=== PATIENT | female | born 1965 | race Caucasian/White ===

== ENCOUNTER 2017-09-28 12:26 | Inpatient (IN) | payer OTHER, MEDICARE ==
[~2017-09-28] VITALS: Ht 157.5 cm; Wt 93.6 kg
[~2017-09-28 12:26] MED LIST: ATORVASTATIN CA20 M1 PO; DULCOLAX5 M1 PO; LEVOTHYROXINE175 MCG PO; LITHIUM CARBON300 M4 PO; MIRALAX17 G1 PO; QUETIAPINE FUM300 M1 PO
--- NOTE | 2017-09-28 12:29 | ED PSYCHIATRIC COMPLAINT ---
History of Present Illness General Chief Complaint: Psychiatric Related Complaint Stated Complaint: BIBA ON PEER Allergies Coded Allergies: No Known Allergies (09/28/17) Reconcile Medications Atorvastatin Calcium 20 MG TABLET 1 TAB PO DAILY CHOLESTEROL (Reported) Bisacodyl (Dulcolax) 5 MG TABLET.DR 2 TAB PO AD PRN constipation Levothyroxine Sodium 175 MCG TABLET 1 TAB PO DAILY AC THYROID (Reported) [place] Carbonate 300 MG CAPSULE 1 CAP PO DAILY MENTAL HEALTH (Reported) [place] Carbonate 300 MG CAPSULE 2 CAP PO QPM MENTAL HEALTH (Reported) Polyethylene Glycol 3350 (Miralax) 17 GM POWD.PACK 1 PAC PO DAILY constipation dissolve in water Quetiapine Fumarate 300 MG TABLET 1 TAB PO QPM SLEEP (Reported) Past History Travel History Traveled to [place] past 21 day No Medical History Neurological: NONE EENT: NONE Cardiovascular: hyperlipidemia Respiratory: NONE Gastrointestinal: constipation Hepatic: NONE Renal: NONE Musculoskeletal: NONE Psychiatric: bipolar disease, depression, insomnia, schizo affective disorder Endocrine: hypothyroidism Blood Disorders: NONE Cancer(s): NONE 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
--- NOTE | 2017-09-28 12:34 | ED PSYCHIATRIC COMPLAINT ---
History of Present Illness General Chief Complaint: Psychiatric Related Complaint Stated Complaint: BIBA ON PEER Source: old records, EMS, police Exam Limitations: PT REFUSING TO ANSWER QUESTIONS Vital Signs & Intake/Output Vital Signs & Intake/Output Vital Signs Date Time Temp Pulse Resp B/P B/P Pulse O2 O2 Flow FiO2 Mean Ox Delivery Rate 09/28 1559 97.6 70 20 138/87 97 Room Air 09/28 1308 Room Air 09/28 1235 97.6 84 16 119/64 99 Room Air Allergies Coded Allergies: No Known Allergies (09/28/17) Reconcile Medications Atorvastatin Calcium 20 MG TABLET 1 TAB PO DAILY CHOLESTEROL (Reported) Bisacodyl (Dulcolax) 5 MG TABLET.DR 2 TAB PO AD PRN constipation Levothyroxine Sodium 175 MCG TABLET 1 TAB PO DAILY AC THYROID (Reported) [place] Carbonate 300 MG CAPSULE 1 CAP PO DAILY MENTAL HEALTH (Reported) [place] Carbonate 300 MG CAPSULE 2 CAP PO QPM MENTAL HEALTH (Reported) Polyethylene Glycol 3350 (Miralax) 17 GM POWD.PACK 1 PAC PO DAILY constipation dissolve in water Quetiapine Fumarate 300 MG TABLET 1 TAB PO QPM SLEEP (Reported) Triage Nurses Notes Reviewed? yes HPI: Patient was seen in the emergency department last night and was discharged at 6 this morning. Her daughter has brought her in for fever of mother having a manic episode. Patient was calm and cooperative at that time and contracts for safety and was subsequently discharged. Patient now brought in on a police paper after barricading herself in her bathroom. The daughter states that she per her hand with a cigarette. Patient states that the blister is from using a screwdriver. Patient denied any suicidal or homicidal ideation to EMS but hasn' t answered any questions in the emergency department. Unsure if the patient is compliant with her medications. Past History Travel History Traveled to [place] past 21 day No Medical History Any Pertinent Medical History? 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 No Review of Systems Review of Systems Constitutional: Reports: see HPI. Physical Exam Physical Exam General Appearance: well developed/nourished, alert, awake Head: atraumatic, normal appearance Eyes: Bilateral: PERRL, EOMI. Ears, Nose, Throat: normal pharynx, normal ENT inspection, hearing grossly normal Neck: normal inspection, supple, full range of motion Respiratory: normal breath sounds, chest non-tender, no respiratory distress, lungs clear Cardiovascular: regular rate/rhythm, normal peripheral pulses Gastrointestinal: normal bowel sounds, soft Extremities: SMALL BLISTER ONPALM Neurological/Psychiatric: no motor/sensory deficits, awake, agitated, alert Appearance/Memory/Insight: REFUSING TO ANSWER QUESTIONS Behavoir/Eye Contact/Speech: uncooperative SAD PERSONS Done? CRISIS CPONSULT OBTAINED Progress Differential Diagnosis: drug intoxication, drug overdose, drug withdrawal, electrolyte abnormality Plan of Care: Orders Procedure Date/time Status Admit to inpatient psych 09/28 1558 Active Continuous Observation Monitor 09/28 1237 Active ED CRISIS PSYCH CONSULT 09/28 1237 Active URINE DRUGS OF ABUSE 09/28 1229 Complete URINALYSIS 09/28 1229 Complete LITHIUM 09/28 1229 Complete ETHANOL 09/28 1229 Complete COMPREHENSIVE METABOLIC PANEL 09/28 1229 Complete CBC WITHOUT DIFFERENTIAL 09/28 1229 Complete Laboratory Tests 09/28/17 1411: Urine Opiates Screen < 100, Methadone Screen 42, Barbiturate Screen < 60, Ur Phencyclidine Scrn < 6.00, Amphetamines Screen < 100, U Benzodiazepines Scrn < 85, Urine Cocaine Screen < 50, Urine Cannabis Screen < 5.00, Urine Color STRAW, Urine Clarity CLEAR, Urine pH 6.0, Ur Specific [place] <= 1.005, Urine Protein NEG, Urine Ketones NEG, Urine Nitrite NEG, Urine Bilirubin NEG, Urine Urobilinogen 0.2, Ur Leukocyte Esterase NEG, Ur Microscopic EXAM NOT REQUIRED, Urine Hemoglobin NEG, Urine Glucose NEG 09/28/17 1302: Anion Gap 13, Estimated GFR > 60, BUN/Creatinine Ratio 15.0, Glucose 109 H, Calcium 10.1, Total Bilirubin 1.2, AST 27, ALT 34, Alkaline Phosphatase 57, Total Protein 6.7, Albumin 4.3, Globulin 2.4, Albumin/Globulin Ratio 1.8, CBC w Diff NO MAN DIFF REQ, RBC 4.31, MCV 89.8, MCH 29.8, MCHC 33.2, RDW 13.5, MPV 8.4 , Gran % 57.6, Lymphocytes % 33.7, Monocytes % 5.9, Eosinophils % 2.3, Basophils % 0.5, Absolute Granulocytes 4.6, Absolute Lymphocytes 2.7, Absolute Monocytes 0.5, Absolute Eosinophils 0.2, Absolute Basophils 0, [place] 1.1, Serum Alcohol < 10.0 Comments: APEC HAS BEEN SIGNED Departure Departure Disposition: STILL A PATIENT Condition: Stable Clinical Impression Primary Impression: Bipolar 1 disorder Referrals: Paulina Dillon APRN (PCP/Family) Departure Forms: Customer Survey General Discharge Information Psych Admission Note Psychiatric Admission: I have seen and evaluated BEENA ROMERO. I have also reviewed all the pertinent lab results and diagnostic results. BEENA ROMERO will be admitted to our inpatient Psychiatric unit for treatment and care.
[2017-09-28 13:29] LABS: LITHIUM 1.1 mmol/L (0.6-1.2)
[2017-09-28 13:51] LABS: ABSOLUTE BASOPHIL COUNT 0 /CUMM (0.0-0.2); ABSOLUTE EOSINOPHIL COUNT 0.2 /CUMM (0.0-0.7); ABSOLUTE GRANULOCYTE CT 4.6 /CUMM (1.4-6.5); ABSOLUTE LYMPH COUNT 2.7 /CUMM (1.2-3.4); ABSOLUTE MONOCYTE COUNT 0.5 /CUMM (0.10-0.60); BASOPHIL % 0.5 % (0.0-2.0); EOSINOPHIL % 2.3 % (0-5); GRANULOCYTE % 57.6 % (42.2-75.2); HEMATOCRIT 38.7 % (37-47); MEAN CORPUSCULAR HGB 29.8 PG (27.0-31.0); MEAN CORPUSCULAR HGB CONC 33.2 G/DL (33.0-37.0); MEAN CORPUSCULAR VOLUME 89.8 FL (81.0-99.0); MEAN PLATELET VOLUME 8.4 FL (7.4-10.4); PLATELET COUNT 292 /CUMM (130-400); RBC DISTRIBUTION WIDTH 13.5 % (11.5-14.5); RED BLOOD CELL CT 4.31 /CUMM (4.20-5.40)
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
[2017-09-28] MEDS ORDERED: LEVOTHYROXINE150 MCG PO (16:39)
[2017-09-28 17:10] VITALS: BP 134/75
[2017-09-28 20:10] VITALS: BP 133/70
--- NOTE | 2017-09-28 21:20 | History & Physical ---
General Information and HPI MD Statement: I have seen and personally examined BEENA ROMERO and documented this H&P. The patient is a 52 year old F who presented with a patient stated chief complaint of [ medical evaluation ]. Source of Information: patient Exam Limitations: clinical condition History of Present Illness: 52 Y O F with PMH HLD, hypothyroidism and bipolar disorder was brought in ER by her daughter for fear of her mother having a manic episode. Patient was seen in the emergency department a night before and was discharged at 6 this morning. Patient is on a police paper after barricading herself in her bathroom. Patient has pain in left side of throat. She states that one of her bottom tooth is hurting and pain goes to throat and then to ear. She felt better after tylenol. Otherwise complete 14 point ROS unremarkable. She had some flight of thoughts but she could confirm all the medications. Allergies/Medications Allergies: Coded Allergies: No Known Allergies (09/28/17) Home Med list Atorvastatin Calcium 20 MG TABLET 1 TAB PO DAILY CHOLESTEROL (Reported) Levothyroxine Sodium 150 MCG TABLET 1 TAB PO DAILY THYROID (Reported) [place] Carbonate 300 MG CAPSULE 2 CAP PO BID BIPOLAR DISORDER (Reported) Quetiapine Fumarate 300 MG TABLET 1 TAB PO QPM SLEEP (Reported) Compliance With Home Meds: GOOD Past History Travel History Traveled to [place] past 21 day No Medical History Neurological: NONE EENT: NONE Cardiovascular: hyperlipidemia Respiratory: NONE Gastrointestinal: constipation Hepatic: NONE Renal: NONE Musculoskeletal: NONE Psychiatric: bipolar disease, depression, insomnia, schizo affective disorder Endocrine: hypothyroidism Blood Disorders: NONE Cancer(s): NONE COST ENGINEER/Reproductive: fibroid History of MRSA: No History of VRE: No History of CDIFF: No Isolation History: Standard Surgical History Surgical History: non-contributory (scar on right knee ), N (scar on right knee) Past Family/Social History Family History Relations & Conditions if any Relation not specified for: *No pertinent family history Psychosocial History Who Do You Live With? self Services at Home: None Smoking Status: Current Everyday Smoker ETOH Use: denies use Illicit Drug Use: denies illicit drug use Functional Ability ADLs Independent: dressing, eating, toileting, bathing. Ambulation: independent IADLs Independent: shopping, housework, finances, food prep, telephone, transportation , medication admin. Employment History Employment Unemployed Review of Systems Review of Systems Constitutional: Reports: no symptoms, see HPI. Post Menopausal: Yes Exam & Diagnostic Data Last 24 Hrs of Vital Signs/I&O Vital Signs Date Time Temp Pulse Resp B/P B/P Pulse O2 O2 Flow FiO2 Mean Ox Delivery Rate 09/28 2009 97.7 82 133/70 09/28 1710 97.5 79 134/75 09/28 1559 97.6 70 20 138/87 97 Room Air 09/28 1308 Room Air 09/28 1235 97.6 84 16 119/64 99 Room Air Physical Exam General Appearance Alert, Oriented X3, Cooperative, No Acute Distress Skin No Rashes, No Breakdown, No Significant Lesion HEENT Atraumatic, PERRLA, EOMI Neck Supple, No JVD, No thryomegaly, +2 Carotid Pulse wo Bruit Lymphatic Cervical nl Cardiovascular Regular Rate, Normal S1, Normal S2, No Murmurs Lungs Clear to Auscultation, Normal Air Movement Abdomen Normal Bowel Sounds, Soft, No Tenderness, No Hepatospenomegaly Neurological Exam Findings: Normal Gait, Normal Speech, Strength at 5/5 X4 Ext, Normal Tone, Sensation Intact, Cranial Nerves 3-12 NL, Reflexes 2+ Cranial Nerves II through XII: 3 to 12 intact Extremities No Clubbing, No Cyanosis Vascular Normal Pulses, Pulses Symmetrical Last 24 Hrs of Labs/Godwin: Laboratory Tests 09/28/17 1411: Urine Opiates Screen < 100, Methadone Screen 42, Barbiturate Screen < 60, Ur Phencyclidine Scrn < 6.00, Amphetamines Screen < 100, U Benzodiazepines Scrn < 85, Urine Cocaine Screen < 50, Urine Cannabis Screen < 5.00, Urine Color STRAW, Urine Clarity CLEAR, Urine pH 6.0, Ur Specific [place] <= 1.005, Urine Protein NEG, Urine Ketones NEG, Urine Nitrite NEG, Urine Bilirubin NEG, Urine Urobilinogen 0.2, Ur Leukocyte Esterase NEG, Ur Microscopic EXAM NOT REQUIRED, Urine Hemoglobin NEG, Urine Glucose NEG 09/28/17 1302: Anion Gap 13, Estimated GFR > 60, BUN/Creatinine Ratio 15.0, Glucose 109 H, Calcium 10.1, Total Bilirubin 1.2, AST 27, ALT 34, Alkaline Phosphatase 57, Total Protein 6.7, Albumin 4.3, Globulin 2.4, Albumin/Globulin Ratio 1.8, CBC w Diff NO MAN DIFF REQ, RBC 4.31, MCV 89.8, MCH 29.8, MCHC 33.2, RDW 13.5, MPV 8.4 , Gran % 57.6, Lymphocytes % 33.7, Monocytes % 5.9, Eosinophils % 2.3, Basophils % 0.5, Absolute Granulocytes 4.6, Absolute Lymphocytes 2.7, Absolute Monocytes 0.5, Absolute Eosinophils 0.2, Absolute Basophils 0, Chapin 1.1, Serum Alcohol < 10.0 Diagnostic Data EKG Results reviewed Assessment/Plan Assessment: # Dental Pain : continue PRN acetaminophen or NSAID, no e/o swelling or inflammation # Bipolar disorder with Lizbeth : agree with Psych plan # HLD : continue statin # Hypothyroidism : continue levothyroxine As Ranked By This Provider Problem List: 1. Bipolar 1 disorder 2. Pain, dental Miscellaneous Miscellaneous Documentation Attending Case Discussed With: Chaitanya Adler MD Primary Care Physician: Paulina Dillon APRN Patient sees these Specialists NO specialist Level of Patient Care: SEVEN Rothman Attending MD Review Statement Attending Statement Attending MD Statement: I personally interviewed and noted H and P
--- NOTE | 2017-09-28 23:47 | Admission Certification ---
Admission Certification Certification Statement - As attending physician, I certify that at the time of - admission, based on clinical presentation, severity of - symptoms, need for further diagnostic testing and - therapeutic interventions, and risk of adverse outcomes - without in-hospital treatment, in my clinical assessment, - this patient requires an acute hospital stay for a minimum - of two nights or longer. I have also considered psychsocial - factors such as support system, advanced age, financial - issues, cognitive issues, and failed out-patient treatments, - past re-admission history, safety of patient, and lack of - compliance as applicable. Specific rationale supporting this admission is: Bipolar with Lizbeth
[2017-09-29 07:52] VITALS: BP 134/72
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
--- NOTE | 2017-09-29 11:39 | CPS PROVIDER INIT ASMT PSYCH ---
Psychiatric Admission Sales Force Developer's Note Reviewed: Yes Patient Seen and Examined: Yes Identifying Information: 52yoF Chief Complaint: "I just should have taken them" Reaction to Hospitalization: positive History of Present Illness Onset of Illness: years ago Circumstances Leading to Admission: medication noncompliance Problem(s) Justifying Need for Admission: worsening chayo and mood Other HPI: Pt notes that she has had a number of psychosocial stressors leading to hospitalization, issues with her car, with her ex-. Most importantly, pt admitted that she had only been taking 1/2 dose of medications over the past 3 months as planning ot move to [facility] and was "hoarding" meds so that she would have enough while traveling. Pt notes that this was not a good idea. Denies SI or HI. Past Psychiatric History Past Diagnosis(es)- if any: Bipolar disorder Past Precipitating Factors- if any: medication noncompliance - Include inpatient and outpatient treatment Treatment History: Pt seen at [facility] by therapist and HEAD WAITRESS for MM, did not tell them about cutting back on meds History of Suicide Attempts or Gestures multiple Substance Abuse History: tobacco: not smoked in 45d alcohol: drinking 1-2 glasses of wine, 2-3x/wk last two weeks illicits: denied Allergies: Coded Allergies: No Known Allergies (09/28/17) Home Med List: [place] Seroquel - Include any medical condition(s) that may - impact the patient's recovery/remission Past Medical History: see H&P Past History Medical History Neurological: NONE EENT: NONE Cardiovascular: hyperlipidemia Respiratory: NONE Gastrointestinal: constipation Hepatic: NONE Renal: NONE Musculoskeletal: NONE Psychiatric: bipolar disease, depression, insomnia, schizo affective disorder Endocrine: hypothyroidism Blood Disorders: NONE Cancer(s): NONE 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 History of MRSA: No History of VRE: No History of CDIFF: No Isolation History: Standard Surgical History Surgical History: HYSTERECTOMY Psychiatric Family/Social Hx Family History Psychiatric Illness: Maternal uncle with bipolar disorder, cousing ith bipolar disorder Substance Use: denied Suicides: maternal uncle via suicide Social History Living Situation: alone Significant Relationships (family/friends): daughters Education: 10th grade, when back to get GED 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 - #1 Recognizing dangerous situations. - #2 Coping Skills. - #3 Basic information about quitting. Status of Tobacco Cessation Counseling: #1, #2 AND #3 Completed Cessation Med Status Pt Refused Cessation Meds (feels not needed) Alcohol Screening - ETOH screen POS if BAL >=80 or Audit-C>= M4/F3 Audit-C Score from Diag Assess: 0 Blood Alcohol Level: Laboratory Tests 09/28 1302 Toxicology Serum Alcohol (<10 MG/DL) < 10.0 Alcohol Use Screening Results: Neg per Audit C &/or BAL - If ETOH counseling indicated - the following topics are required. - #1 Express concern about the patient's - drinking at unhealthy levels, include informing - of national norms for moderate drinking: - men <= 14 drinks/week, max 4 drinks/occasion - women <= 7 drinks/week, max 3 drinks/occasion - #2 Providing feedback, including linking alcohol to - negative physical effects (liver injury, hypertension) - negative emotional effects (relationship problems and - depression) - negative occupational consequences (reduced work - performance) - #3 Advising the patient to abstain from alcohol or - to drink below national norms for moderate drinking - (as listed above). Status of ETOH Use Counseling: N/A B/C NO ETOH Use Metabolic Screening - Screen if on a Neuroleptic Medication - Metabolic screening should include: - Blood Pressure, BMI, Glucose or Hgb A1c, & a - Lipid profile from within the past 365 days. Metabolic Screening Laboratory Tests 09/29 09/28 0655 1411 Chemistry Hemoglobin A1c (4.2 - 5.8 %) Pending Triglycerides (<150 mg/dL) 262 H Cholesterol (<200 MG/DL) 137 LDL Cholesterol, Calc (65 - 129 mg/dL) 45 L HDL Cholesterol (40 - 60 mg/dL) 40 Cholesterol/HDL Ratio (0.00 - 4.23 %) 3 Vitamin B12 (239 - 931 pg/mL) 338 Free T4 (0.64 - 1.79 ng/dL) 1.19 Total T3 (0.97 - 1.69 ng/mL) Pending TSH &T3 &Free T4 Intrp (0.270 - 4.20 uIU/mL) 7.050 H Toxicology Urine Opiates Screen (>2000 NG/ML) < 100 Methadone Screen (>300 NG/ML) 42 Barbiturate Screen (>200 NG/ML) < 60 Ur Phencyclidine Scrn (>25 NG/ML) < 6.00 Amphetamines Screen (>1000 NG/ML) < 100 U Benzodiazepines Scrn (>200 NG/ML) < 85 [place] (0.6 - 1.2 mmol/L) 1.0 Urine Cocaine Screen (>300 NG/ML) < 50 Urine Cannabis Screen (>50 NG/ML) < 5.00 Urines Urine Color (YEL,AMB,STR) STRAW Urine Clarity (CLEAR) CLEAR Urine pH (5.0 - 8.0) 6.0 Ur Specific [place] (1.001 - 1.035) <= 1.005 Urine Protein (NEG,<30 MG/DL) NEG Urine Ketones (NEG) NEG Urine Nitrite (NEG) NEG Urine Bilirubin (NEG) NEG Urine Urobilinogen (0.1 - 1.0 EU/dl) 0.2 Ur Leukocyte Esterase (NEG) NEG Ur Microscopic EXAM NOT REQUIRED Urine Hemoglobin (NEG) NEG Urine Glucose (N MG/DL) NEG 09/28 1302 Chemistry Sodium (137 - 145 mmol/L) 145 Potassium (3.5 - 5.1 mmol/L) 3.8 Chloride (98 - 107 mmol/L) 107 Carbon Dioxide (22 - 30 mmol/L) 26 Anion Gap (5 - 16) 13 BUN (7 - 17 mg/dL) 12 Creatinine (0.5 - 1.0 mg/dL) 0.8 Estimated GFR (>60 ml/min) > 60 BUN/Creatinine Ratio (7 - 25 %) 15.0 Glucose (65 - 99 mg/dL) 109 H Calcium (8.4 - 10.2 mg/dL) 10.1 Total Bilirubin (0.2 - 1.3 mg/dL) 1.2 AST (14 - 36 U/L) 27 ALT (9 - 52 U/L) 34 Alkaline Phosphatase (<127 U/L) 57 Total Protein (6.3 - 8.2 g/dL) 6.7 Albumin (3.5 - 5.0 g/dL) 4.3 Globulin (1.9 - 4.2 gm/dL) 2.4 Albumin/Globulin Ratio (1.1 - 2.2 %) 1.8 Hematology CBC w Diff NO MAN DIFF REQ WBC (4.8 - 10.8 /CUMM) 8.0 RBC (4.20 - 5.40 /CUMM) 4.31 Hgb (12.0 - 16.0 G/DL) 12.9 Hct (37 - 47 %) 38.7 MCV (81.0 - 99.0 FL) 89.8 MCH (27.0 - 31.0 PG) 29.8 MCHC (33.0 - 37.0 G/DL) 33.2 RDW (11.5 - 14.5 %) 13.5 Plt Count (130 - 400 /CUMM) 292 MPV (7.4 - 10.4 FL) 8.4 Gran % (42.2 - 75.2 %) 57.6 Lymphocytes % (20.5 - 51.1 %) 33.7 Monocytes % (1.7 - 9.3 %) 5.9 Eosinophils % (0 - 5 %) 2.3 Basophils % (0.0 - 2.0 %) 0.5 Absolute Granulocytes (1.4 - 6.5 /CUMM) 4.6 Absolute Lymphocytes (1.2 - 3.4 /CUMM) 2.7 Absolute Monocytes (0.10 - 0.60 /CUMM) 0.5 Absolute Eosinophils (0.0 - 0.7 /CUMM) 0.2 Absolute Basophils (0.0 - 0.2 /CUMM) 0 Toxicology [place] (0.6 - 1.2 mmol/L) 1.1 Serum Alcohol (<10 MG/DL) < 10.0 Exam and Plan Mental Status Examination Ambulation Status: walking freely Appearance: older than stated age Attitude towards examiner: cooperative Psychomotor activity: no agitation or retardation Behavior: cooperative Quality of speech: nl r/r/v/p though pressured Affect: irritable, labile, appropriate, grandiose Mood: "fine" Suicidal Ideation: denied Homicidal Ideation: denied Hallucinations: denied Paranoid/Delusional Material: denied Difficulties with thought organization: racing thoughts Insight: poor Judgment: very poor Orientation: a/o x4 Cognition: grossly intact Memory Function: grossly intact Estimate of intellectual functioning: average Assets/Strengths Patient Identified Assets/Strengths: able to communicate Impression/Plan Impression and Plan: Pt with hx of bipolar disorder with recent decompensation in the setting of medication non-compliance (taking 1/2 doses) - Include all active medical diagnosis that require tx DSM 5 Diagnosis(es): Bipolar disorder - Initial Tx Plan for Active Psych & Medical Conditions Treatment Plan: - Resume meds at rx dosing - Factors that would help patient function - in a less restrictive setting. Factors: medication compliance
[2017-09-29 12:01] VITALS: BP 141/75
[2017-09-29 15:44] VITALS: BP 134/80
[2017-09-29 19:50] VITALS: BP 133/79
[2017-09-30 07:41] VITALS: BP 133/74
[2017-09-30 12:15] VITALS: BP 124/70
--- NOTE | 2017-09-30 13:27 | SOCIAL WORKER PROG NOTE PSYCH ---
Social Work Progress Note Progress Note Met Ralph with Oziel Betts APRN this afternoon. Jazzmine has been going through a number of stressors, which she reports led to "a breakdown." She also mentioned missing some medication stating she sometimes would forget to take night time meds and sometimes day time meds. She keeps her medication in a divided pill box. Some of the stressors include her not being able to work right now, due to having car problems. 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 She is struggling to maintain her apartment due to being out of work. She is , but her lives in [place] with a roommate due to his employment being in [place]. She can't move in with him, because it's a room he is renting with a roommate. She is hoping that they will eventually find a place together. She hasn't been getting much sleep. She said she is experiencing some tooth pain which is causing her discomfort and that's why she couldn't sleep last night. Denies racing thoughts. Denies SI/HI. Rates her depression on a scale from 0- 10 (10 being severe) at a 3 and anxiety a 5. She states "I'm happy." She doesn 't feel she is manic. She did not present with manic behavior during the interview today. She talked about her dx of having Bipolar Disorder and wanting to help others understand the illness. She mentioned that sometimes she experiences auditory hallucinations of family members saying things to her, but they are generally postive in nature. Denies feeling paranoid. Asked if she has felt any changes from admission til now? She said she felt clearer. She attributes that to her medication. Oziel Betts APRN plans to increase her Seroquel tonight to help her sleep. Asked about having her in for a family meeting? She said her works 6 days a week and she didn't think that was possible. Asked if there was anyone else she would want in? She said maybe her daughters and she would check to see what their schedule was like. She is currently in tx at [facility] in [place]. She signed a release for them. She sees her therapist there every 2 weeks. Overall, seemed to be pleasant, cooperative, and close to baseline.
--- NOTE | 2017-09-30 13:31 | CP SOUTH PROGRESS NOTE PSYCH ---
Psych (Inpt) Progress Note Progress Note Include the following elements, when applicable: Involvement in the active treatment of the patient with behavioral observations of the patient and the patient's response to the treatment. Review of the ongoing treatment process in the context of the treatment plan. Indication of how multi-disciplinary staff members are carrying out the treatment plan. Plans for future interventions and recommendations for revision of the treatment plan. Liaison with other physicians/providers. Progress Note: I discussed this patient's progress to date, current mental status, treatment process in the context of the treatment plan, and discharge planning with staff/ team in the daily morning inpatient team meeting. I also met with the patient myself in individual session. A total of 25 minutes was spent with the patient with more than 50% spent in counseling and/or coordination of care. SUBJECTIVE: "I feel clearer, clear thoughts. I feel better now that I'm here, and taking my medications. I don't think I was manic, I was just under a lot of stress." OBJECTIVE: Current Medications Sig/Krupa Start time Last Medication Dose Route Stop Time Status Admin Acetaminophen 650 MG Q8P PRN 09/28 1715 AC 09/29 PO 0422 Atorvastatin Calcium 20 MG 5PM 09/29 1700 AC 09/29 PO 1642 Chlorpromazine 50 MG Q6P PRN 09/28 1730 AC 09/28 PO 2224 Hydroxyzine HCl 50 MG Q8P PRN 09/28 1715 AC 09/28 PO 2224 Levothyroxine Sodium 0.15 MG DAILY AC 09/29 0700 AC 09/30 PO 0623 [place] Carbonate 600 MG BID 09/28 2100 AC 09/30 PO 0751 Lorazepam 1 MG Q6P PRN 09/28 1730 AC 09/28 PO 2224 Quetiapine Fumarate 400 MG AT BEDTIME 09/30 2100 AC PO Quetiapine Fumarate 300 MG AT BEDTIME 09/28 2100 DC 09/29 PO 2129 Trazodone HCl 50 MG AT BEDTIME NEED.. 09/28 171 AC 09/28 PO 2150 Vital Signs Date Time Temp Pulse Resp B/P B/P Pulse O2 O2 Flow FiO2 Mean Ox Delivery Rate 09/30 1215 77 124/70 09/30 0741 96.5 73 133/74 09/29 1950 98.2 77 133/79 09/29 1544 79 134/80 Patient is seen for medications by MANAGER WATER WASTEWATER Mary, at [facility]. ASSESSMENT: This is my first time visiting with this patient. Today I met her along with social media developer Darby Hicks LCSW. 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 States that she does not believe that she had been manic, just that she has been under a lot of stress. Tolerating her medications well, without complaint. States that she sometimes takes a higher dose of Seroquel, and feels that she would benefit from that now. Depression:07/20; Anxiety:09/19 (with 10 the worst.) "I'm not depressed, I'm happy." Denies suicidal ideation, homicidal ideation, visual hallucinations, paranoid ideation. She states that she "never" has suicidal thoughts. States that she promised that she would never do that after a suicidal attempt 20 years ago. "Why would I kill myself, I have two wonderful daughters." Patient states and also believes that she will not kill herself. She reports intermittent auditory hallucinations "I hear my family giving me friendly advice." States that the voices never tell her bad things. She reports sleeping not that well last night, requesting a higher dose of Seroquel. Her appetite, energy, and concentration are all good. Speech is well articulated, goal-directed, average in rate, volume and tone. The patient understands the risks/benefits/side effects of the medication and is agreeable to continue taking them. PLAN: 1. Seroquel 400 mg at bedtime for continuing auditory hallucinations, difficulty sleeping. Continue with other current management as patient is improving. Continue to provide support and encouragement.
[2017-09-30 15:43] VITALS: BP 127/74
[2017-09-30 19:45] VITALS: BP 131/80
[2017-10-01 07:50] VITALS: BP 136/75
--- NOTE | 2017-10-01 09:05 | CP SOUTH PROGRESS NOTE PSYCH ---
Psych (Inpt) Progress Note Progress Note Include the following elements, when applicable: Involvement in the active treatment of the patient with behavioral observations of the patient and the patient's response to the treatment. Review of the ongoing treatment process in the context of the treatment plan. Indication of how multi-disciplinary staff members are carrying out the treatment plan. Plans for future interventions and recommendations for revision of the treatment plan. Liaison with other physicians/providers. Progress Note: I discussed this patient's progress to date, current mental status, treatment process in the context of the treatment plan, and discharge planning with staff/ team in the daily morning inpatient team meeting. I also met with the patient myself in individual session. A total of 15 minutes was spent with the patient with more than 50% spent in counseling and/or coordination of care. SUBJECTIVE: "I don't know who be much longer. I need to give this a break for a while. My came to visit last night, it was not a good visit." OBJECTIVE: Current Medications Sig/Krupa Start time Last Medication Dose Route Stop Time Status Admin Acetaminophen 650 MG Q8P PRN 09/28 1715 AC 10/01 PO 0708 Atorvastatin Calcium 20 MG 5PM 09/29 1700 AC 09/30 PO 1634 Chlorpromazine 50 MG Q6P PRN 09/28 1730 AC 10/01 PO 0001 Hydroxyzine HCl 50 MG Q8P PRN 09/28 1715 AC 09/28 PO 2224 Levothyroxine Sodium 0.15 MG DAILY AC 09/29 0700 AC 10/01 PO 0708 [place] Carbonate 600 MG BID 09/28 2100 AC 09/30 PO 2136 Lorazepam 1 MG Q6P PRN 09/28 1730 AC 09/30 PO 2238 Quetiapine Fumarate 400 MG AT BEDTIME 09/30 2100 AC 09/30 PO 2135 Quetiapine Fumarate 300 MG AT BEDTIME 09/28 2100 DC 09/29 PO 2129 Trazodone HCl 50 MG AT BEDTIME NEED.. 09/28 1715 AC 09/28 PO 2150 Vital Signs Date Time Temp Pulse Resp B/P B/P Pulse O2 O2 Flow FiO2 Mean Ox Delivery Rate 10/01 0750 96.9 86 136/75 09/30 1945 96.9 70 131/80 09/30 1543 75 127/74 09/30 1215 77 124/70 ASSESSMENT: She presents this morning, cooperative and calm. Reports feeling better after Seroquel was increased to 400 mg last night. Was somewhat agitated last night after her visit with her , and apparently she had some difficulty with another patient last night, and was medicated with prn ativan, after which she slept well last night. Patient is requesting to be discharged today. States that she is feeling stable now that she is back on her medications. She says that she has one daughter who is a pharmacist tech, and another daughter who is a nurse. Says that her daughters will help her with medication adherence, "they will be on me like white on rice." Depression:0/10; Anxiety:0/10 (with 10 the worst.) Patient reports chronic auditory hallucinations, "the voices are my family telling me that I'm okay. I haven't had bad or threatening voices in a long time." Denies suicidal ideation, homicidal ideation, visual hallucinations, paranoid ideation. Patient states that she has not had suicidal thoughts in the past 20 years. Patient states and also believes that she will not kill herself. Appetite, energy, interest are all good. Patient reports having good concentration "I'm constantly reading and writing. I have no problems with concentration at all." Speech is well articulated, goal-directed, average in rate, volume and tone. The patient understands the risks/benefits/side effects of the medication and is agreeable to continue taking them. PLAN: Continue with current management as patient is improving. Continue to provide support and encouragement.
--- NOTE | 2017-10-01 11:01 | SOCIAL WORKER PROG NOTE PSYCH ---
Social Work Progress Note Progress Note Pt was irritable, upon meeting, "I have a house, I'm sick of being here the coffee is cold, and they can't cook". She offers I will follow up with [facility] in [place]. I set up a family meeting with her daughters for 10:30 on Saturday10/02/17 Greg can be reached at [phone]. [facility] in [place]: Pt has a follow up appointment with her PCP for 10/04/17 at 11:00. She can meet with CÉSAR Temple LPC on 10/14/17 at 12:30pm, and her NURSING OFFICERBeena Courtney 10/09/17 at 3pm. Discharge info can be faxed to [phone].
[2017-10-01 11:49] VITALS: BP 119/70
--- NOTE | 2017-10-01 14:40 | SOCIAL WORKER PROG NOTE PSYCH ---
Social Work Progress Note Progress Note BEENA ROMERO [id number] 1965 BEENA NICK [id number] Pended Authorization # Client Authorization # Type of Request [id number] CONCURRENT Date of Admission/ Start of Services Requested From Submission Date 09/28/2017 10/01/2017 10/01/2017
[2017-10-01 15:59] VITALS: BP 125/72
[2017-10-01 19:53] VITALS: BP 121/77
[2017-10-02 08:02] VITALS: BP 139/85
--- NOTE | 2017-10-02 11:24 | SOCIAL WORKER PROG NOTE PSYCH ---
Social Work Progress Note Progress Note Ralph's daughter's Greg and Mony came in for a family meeting at 10:30am. Ralph was very focused on when we would be discharging and got very irritable at the start of the meeting. She seemed to be targeting her daughters in regards to "keeping her here." I emphasized that our decision to not d/c today was a team's decision and that the team feels she needs more time. She stated she was here voluntarily and wanted to leave voluntarily. I explained that she is on a PEC and explained what that was. At that point she got up and left the meeting. A few minutes later she asked to come back to the meeting. I emphasized that she needed to remain calm. One minute into the meeting she got up and left when she heard she was not leaving today. Her daughter's wanted to have some time to talk about how she is doing. They don't feel she is ready. Her daughter Mony would like to file for [employer] of person and estate. They report that they have been going through this with their Mom since childhood and they need to have more control over her finances and things when she becomes ill. It sounds like she is going to follow through with the [place] [facility]. Also gave them info on [employer] to help with rides. They asked about VNS. I told them I would have to check to see if she is eligible through her [employer] insurance. They are interested in having another family meeting. Mony is hoping she will stay through the weekend, due to her not being around this weekend. She also asked for info on her follow up appts. She is planning to go with her to appts. I gave her the appts. scheduled at [facility].
[2017-10-02 16:06] VITALS: BP 137/90
--- NOTE | 2017-10-02 18:29 | CP SOUTH PROGRESS NOTE PSYCH ---
Psych (Inpt) Progress Note Progress Note Include the following elements, when applicable: Involvement in the active treatment of the patient with behavioral observations of the patient and the patient's response to the treatment. Review of the ongoing treatment process in the context of the treatment plan. Indication of how multi-disciplinary staff members are carrying out the treatment plan. Plans for future interventions and recommendations for revision of the treatment plan. Liaison with other physicians/providers. Progress Note: I discussed this patient's progress to date, current mental status, treatment process in the context of the treatment plan, and discharge planning with staff/ team in the daily morning inpatient team meeting. I also met with the patient myself in individual session. A total of 15 minutes was spent with the patient with more than 50% spent in counseling and/or coordination of care. OBJECTIVE: Current Medications Sig/Krupa Start time Last Medication Dose Route Stop Time Status Admin Acetaminophen 650 MG Q8P PRN 09/28 1715 AC 10/01 PO 0708 Atorvastatin Calcium 20 MG 5PM 09/29 1700 AC 10/02 PO 1649 Chlorpromazine 50 MG Q6P PRN 09/28 1730 DC 10/02 PO 1100 Hydroxyzine HCl 50 MG Q8P PRN 09/28 1715 AC 09/28 PO 2224 Levothyroxine Sodium 0.15 MG DAILY AC 09/29 0700 AC 10/02 PO 0606 [place] Carbonate 600 MG BID 09/28 2100 AC 10/02 PO 0854 Lorazepam 1 MG Q6P PRN 09/28 1730 AC 10/02 PO 1100 Quetiapine Fumarate 600 MG AT BEDTIME 10/02 2100 AC PO Quetiapine Fumarate 50 MG Q4 HRS NEEDED PRN 10/02 1530 AC PO Quetiapine Fumarate 400 MG AT BEDTIME 09/30 2100 DC 10/01 PO 2118 Trazodone HCl 50 MG AT BEDTIME NEED.. 09/28 1715 AC 09/28 PO 2150 Vital Signs Date Time Temp Pulse Resp B/P B/P Pulse O2 O2 Flow FiO2 Mean Ox Delivery Rate 10/02 1606 91 137/90 10/02 0802 98.0 87 139/85 10/01 1952 98.1 84 121/77 ASSESSMENT: Today the patient refused to meet with me for a daily follow-up visit. States that she is very angry, she does not need to be here, and needs to go home. States that she planned on going shopping today. As per nursing staff, patient has been mostly isolative in her room today, acting erratically, and irritable. As per social work, patient was irritable and lashing out at her daughter's during a family meeting today. Please see today's note by Darby Salazar LCSW. Patient agreed to increase her dose of Seroquel at bedtime. She had stated that in the past she had taken 600 mg of Seroquel at bedtime to good effect. She is also aware that she may ask for additional Seroquel as needed during the day. Patient declined to comment and on her perception of her depression, anxiety, suicidal ideation, homicidal ideation, auditory hallucinations, visual hallucinations, paranoid ideation. Towards the end of the day, patient was noted to be out in the community room, acting sociably and appropriately with other patients. Speech is well articulated, goal-directed, average in rate, volume and tone. The patient understands the risks/benefits/side effects of the medication and is agreeable to continue taking them. PLAN: 1. Increase Seroquel to 600 mg at bedtime. Additional Seroquel as needed during the day. 2. Lorazepam as needed for anxiety. 3. Thorazine prn has been discontinued Continue with other current management as patient is improving. Continue to provide support and encouragement.
[2017-10-02 20:07] VITALS: BP 142/83
[2017-10-03 08:14] VITALS: BP 139/75
--- NOTE | 2017-10-03 10:44 | SOCIAL WORKER PROG NOTE PSYCH ---
Social Work Progress Note Progress Note At 10:30am Ralph was in her room resting. Her mattress was taken off her bed and is placed on the floor. She was on the mattress. She got upset immediately as I tried to engage her. She basically said it was cruel that I and other staff here keep disrupting her when she is trying to sleep. I told her that wasn't my intention, but I was trying to check in with her today. She said unless I was telling her she was leaving today there was nothing else to talk about. I asked why her mattress was on the floor? 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 She went to verbalize her frustration about being here. I told her she had the right to file for a Probable Cause Hearing. I explained what that was. She said I was only telling her this to serve my own purpose. I explained it was her legal right. She then basically dismissed me by telling me I'm wasting her time. At that point I left the room.
--- NOTE | 2017-10-03 10:49 | CP SOUTH PROGRESS NOTE PSYCH ---
Psych (Inpt) Progress Note Progress Note Include the following elements, when applicable: Involvement in the active treatment of the patient with behavioral observations of the patient and the patient's response to the treatment. Review of the ongoing treatment process in the context of the treatment plan. Indication of how multi-disciplinary staff members are carrying out the treatment plan. Plans for future interventions and recommendations for revision of the treatment plan. Liaison with other physicians/providers. Progress Note: I discussed this patient's progress to date, current mental status, treatment process in the context of the treatment plan, and discharge planning with staff/ team in the daily morning inpatient team meeting. I also met with the patient myself in individual session. A total of 15 minutes was spent with the patient with more than 50% spent in counseling and/or coordination of care. SUBJECTIVE: "I came here because I had a nervous breakdown, not because I was manic. I want to leave now! I was betrayed by my daughters." OBJECTIVE: Current Medications Sig/Krupa Start time Last Medication Dose Route Stop Time Status Admin Acetaminophen 650 MG .STK-MED ONE 10/03 2107 DC PO 10/02 210 Acetaminophen 650 MG Q8P PRN 09/28 1715 AC 10/02 PO 210 Atorvastatin Calcium 20 MG 5PM 09/29 1700 AC 10/02 PO 1649 Benzocaine 1 ENRIQUE Q6-PRN PRN 10/03 1045 UNVr TOP Chlorpromazine 50 MG Q6P PRN 09/28 1730 DC 10/02 PO 1100 Hydroxyzine HCl 50 MG Q8P PRN 09/28 1715 DC 09/28 PO 2224 Levothyroxine Sodium 0.15 MG DAILY AC 09/29 0700 AC 10/03 PO 0655 [place] Carbonate 600 MG BID 09/28 2100 AC 10/03 PO 0752 Lorazepam 2 MG AT BEDTIME 10/03 2100 UNVr PO Lorazepam 1 MG 0800,1400 10/03 1400 UNVr PO Lorazepam 1 MG Q6P PRN 09/28 1730 DC 10/03 PO 0754 Quetiapine Fumarate 600 MG AT BEDTIME 10/02 2100 AC 10/02 PO 2109 Quetiapine Fumarate 50 MG Q4 HRS NEEDED PRN 10/02 1530 AC 10/03 PO 0755 Quetiapine Fumarate 400 MG AT BEDTIME 09/30 2100 DC 10/01 PO 2118 Trazodone HCl 50 MG AT BEDTIME NEED.. 09/28 1715 DC 09/28 PO 2150 Vital Signs Date Time Temp Pulse Resp B/P B/P Pulse O2 O2 Flow FiO2 Mean Ox Delivery Rate 10/03 0814 98.9 85 139/75 10/02 2006 97.9 86 142/83 10/02 1606 91 137/90 ASSESSMENT: Patient presented today after eating a full breakfast, angry and insistent that she be discharged today from the hospital. She has numerous complaints including poor food service agent, uncomfortable bed, air conditioning in room uncomfortable, she needs to go home to check her email to see if she has any job offers. Later in the morning, pacing on the unit, angry, ranting. Tolerating bedtime Seroquel, although states she did not sleep well last night. Discussed case with Dr. Stanley and will increase lorazepam to 1mg BID, plus 2mg QHS temporarily to see if this helps her keep calm. Depression: 0/10; Anxiety:3/10 (with 10 the worst.) Denies suicidal ideation, homicidal ideation, visual hallucinations, paranoid ideation. Patient endorses hearing voices "of my family, they're all alive, they're not ghosts!" States the voices of her family members are supportive and positive. She reports her appetite is good. Her concentration is improving, states that last night she was able to do crossword puzzles and read her book. Speech is well articulated, goal-directed, average in rate, volume and tone. The patient understands the risks/benefits/side effects of the medication and is agreeable to continue taking them. PLAN: Seroquel at bedtime. Lorazepam at this time for anxiety, disruptive behavior, and sleep. Continue with other current management.. Continue to provide support and encouragement.
[2017-10-03 20:20] VITALS: BP 143/76
[2017-10-04 07:44] VITALS: BP 110/77
--- NOTE | 2017-10-04 10:25 | SOCIAL WORKER PROG NOTE PSYCH ---
Social Work Progress Note Progress Note Darby Salazar and Linus Moseley went to [facility]'s room to engaage her in a meeting with Oziel Betts APRN to discuss how she is feeling today. The patient did not want to talk about anything until she knew the date she was leaving.The patient remains irritable and disengaged in treatment. She remains on her mattress on the floor.She complains of being cold and other conditions related to the environment. Darby Salazar called [facility] to cancel her appointment with PCP today and will call to re-schedule when she is close to discharging.A family meeting is being set up for Saturday with both daughters. Meeting is confirmed for Saturday at 3:15pm.
[2017-10-04 12:43] VITALS: BP 135/83
--- NOTE | 2017-10-04 12:49 | SOCIAL WORKER PROG NOTE PSYCH ---
Social Work Progress Note Progress Note The services requested require additional review. You will be contacted regarding the status of this request if further information is needed. An authorization decision will be made within the required timeframes and details of that decision may be found under the member's authorization history. Member Name Member ID Member Subscriber Name Subscriber ID BEENA ROMERO [id number] 1965 BEENA ROMERO [id number] Pended Authorization # Client Authorization # Type of Request [id number] CONCURRENT Date of Admission/ Start of Services Requested From Submission Date 09/28/2017 10/04/2017 10/04/2017 Level of Service Type of Service Level of Care Type of Care INPATIENT/HLOC [facility]patient [facility] Reason Code P76 Provider Name & Address Provider ID Provider Alternate ID NPI # for Authorization TREMAINE WILSON [id number] N/A [address] [facility] [id number]
--- NOTE | 2017-10-04 13:30 | CP SOUTH PROGRESS NOTE PSYCH ---
Psych (Inpt) Progress Note Progress Note Include the following elements, when applicable: Involvement in the active treatment of the patient with behavioral observations of the patient and the patient's response to the treatment. Review of the ongoing treatment process in the context of the treatment plan. Indication of how multi-disciplinary staff members are carrying out the treatment plan. Plans for future interventions and recommendations for revision of the treatment plan. Liaison with other physicians/providers. Progress Note: I discussed this patient's progress to date, current mental status, treatment process in the context of the treatment plan, and discharge planning with staff/ team in the daily morning inpatient team meeting. I also met with the patient myself in individual session. A total of minutes was spent with the patient with more than 50% spent in counseling and/or coordination of care. SUBJECTIVE: "It's none of your business who I'm talking to in here. I'm speaking with my family." OBJECTIVE: Current Medications Sig/Krupa Start time Last Medication Dose Route Stop Time Status Admin Acetaminophen 650 MG Q8P PRN 09/28 1715 AC 10/02 PO 2109 Atorvastatin Calcium 20 MG 5PM 09/29 1700 AC 10/03 PO 1731 Benzocaine 1 ENRIQUE Q6-PRN PRN 10/03 1045 AC 10/03 TOP 1351 Levothyroxine Sodium 0.15 MG DAILY AC 09/29 0700 AC 10/04 PO 0714 [place] Carbonate 600 MG BID 09/28 2100 AC 10/04 PO 1019 Lorazepam 2 MG AT BEDTIME 10/03 2100 AC 10/03 PO 2140 Lorazepam 1 MG 0800,1400 10/03 1400 AC 10/04 PO 1020 Quetiapine Fumarate 600 MG AT BEDTIME 10/02 2100 AC 10/03 PO 2140 Quetiapine Fumarate 50 MG Q4 HRS NEEDED PRN 10/02 1530 AC 10/03 PO 0755 Vital Signs Date Time Temp Pulse Resp B/P B/P Pulse O2 O2 Flow FiO2 Mean Ox Delivery Rate 10/04 1243 91 135/83 10/04 0744 96.4 78 110/77 10/04 2019 96.9 85 143/76 ASSESSMENT: Patient is found in her room today, speaks loudly while looking out and standing at the window. She became very angry when I intruded. States that she is not going to cooperate with me, because she needs to be discharged immediately. She did say that she slept well last night. As per nursing report she has been taking her meals in the community room. Patient ambulates with steady gait. Appears alert and oriented to person, place, time and situation. Responding to internal stimuli/auditory hallucinations. Would not cooperate further with this visit. Speech is well articulated, goal-directed, average in rate, volume. Angry tone of voice. The patient understands the risks/benefits/side effects of the medication and is agreeable to continue taking them. PLAN: Continue with current management. Continue to provide support and encouragement.
[2017-10-04 20:05] VITALS: BP 132/83
[2017-10-05 12:04] VITALS: BP 138/86
--- NOTE | 2017-10-05 15:52 | CP SOUTH PROGRESS NOTE PSYCH ---
Psych (Inpt) Progress Note Progress Note Include the following elements, when applicable: Involvement in the active treatment of the patient with behavioral observations of the patient and the patient's response to the treatment. Review of the ongoing treatment process in the context of the treatment plan. Indication of how multi-disciplinary staff members are carrying out the treatment plan. Plans for future interventions and recommendations for revision of the treatment plan. Liaison with other physicians/providers. Progress Note: The patient was discussed with the unit staff we attempted to interview her one- to-one. According to nursing report patient has been eating and sleeping Her discourse continues to be disorganized, she is very irritable, suspicious, She is complaining of toothache nevertheless recommended prescribed. She is very irritable, at times angry. The nursing staff as well as Mr. Oziel Betts, the prescriber for the week observed the patient talking to herself. When asked about who she was talking to she became very angry, irritated, We were not able to perform a formal Mini-Mental status examination due to the patient's mind set. She was loud, rude, inappropriate.
[2017-10-05 16:03] VITALS: BP 131/89
[2017-10-05 20:31] VITALS: BP 117/93
[2017-10-06 07:51] VITALS: BP 131/81
[2017-10-06 12:03] VITALS: BP 135/86
[2017-10-06 15:41] VITALS: BP 140/87
--- NOTE | 2017-10-06 15:42 | CP SOUTH PROGRESS NOTE PSYCH ---
Psych (Inpt) Progress Note Progress Note Include the following elements, when applicable: Involvement in the active treatment of the patient with behavioral observations of the patient and the patient's response to the treatment. Review of the ongoing treatment process in the context of the treatment plan. Indication of how multi-disciplinary staff members are carrying out the treatment plan. Plans for future interventions and recommendations for revision of the treatment plan. Liaison with other physicians/providers. Progress Note: 52 yo female in treatment for bipolar disorder exacerbated in the context of noncompliance with medication. The patient was seen one-to-one and discussed with the nursing staff. She has been up and about, less irritable and angry than previously. She has limited interaction with peers and staff members. Reported to have been sleeping and eating well. During the one-to-one interview she was demanding to be discharged stating that she is doing well, denying suicidal/homicidal ideation, stating that her mood is fine and there is no reason for her to be "a prisoner". She became louder and louder as the interview progressed. She ended the interview abruptly, stating that she will talk to her "real doctor " Saturday. Sig/Krupa Start time Last Medication Dose Route Stop Time Status Admin Acetaminophen 650 MG Q8P PRN 09/28 1715 AC 10/02 PO 2109 Atorvastatin Calcium 20 MG 5PM 09/29 1700 AC 10/05 PO 1816 Benzocaine 1 ENRIQUE Q6-PRN PRN 10/03 1045 AC 10/03 TOP 1351 Levothyroxine Sodium 0.15 MG DAILY AC 09/29 0700 AC 10/06 PO 0652 [place] Carbonate 600 MG BID 09/28 2100 AC 10/06 PO 0752 Lorazepam 2 MG AT BEDTIME 10/03 2100 AC 10/05 PO 2145 Lorazepam 1 MG 0800,1400 10/03 1400 AC 10/06 PO 1356 Magnesium Hydroxide 30 ML ONE ONE 10/05 2215 DC PO 10/05 2216 Polyethylene Glycol 17 GM ONCE ONE 10/06 0600 DC 10/06 PO 10/06 0601 0652 Polyethylene Glycol 17 GM ONCE ONE 10/05 2245 DC PO 10/05 2359 Quetiapine Fumarate 600 MG AT BEDTIME 10/02 2100 AC 10/05 PO 2144 Quetiapine Fumarate 50 MG Q4 HRS NEEDED PRN 10/02 1530 AC 10/05 PO 1459 Lab LDL Cholesterol, Calc 45 mg/dL L 09/29/17 0655 TSH &T3 &Free T4 Intrp 7.050 uIU/mL H 09/29/17 0655 Triglycerides 262 mg/dL H 09/29/17 0655 [place] 1.0 mmol/L 09/29/17 06 She is compliant with her medication, denies having any side effects, does not want to address thyroid abnormalities. She stated that her primary care provider, Paulina Gambino APRN recently reduced the Synthroid dose resulting in weight gain. The patient angrily stated that she will try to lose the weight by dieting and exercising because "I do not want any more medication changes. I do not trust anybody. All of the doctors and everybody saying one thing and doing other " We will continue present medication regimen, observation, symptom monitoring. The patient will be followed up daily by the unit psychiatrist.
[2017-10-06 19:53] VITALS: BP 126/74
[2017-10-07 07:55] VITALS: BP 135/79
--- NOTE | 2017-10-07 08:21 | CP SOUTH PROGRESS NOTE PSYCH ---
Psych (Inpt) Progress Note Progress Note Include the following elements, when applicable: Involvement in the active treatment of the patient with behavioral observations of the patient and the patient's response to the treatment. Review of the ongoing treatment process in the context of the treatment plan. Indication of how multi-disciplinary staff members are carrying out the treatment plan. Plans for future interventions and recommendations for revision of the treatment plan. Liaison with other physicians/providers. Progress Note: Subjective: Patient isolative in room today. Patient asking if blog writer is the "patient complaints person because she is very upset about my bed ". Patient reports she was very upset that her bed was creaking every time she turned and has slept on the floor for the last 3 nights. (Per nursing staff, patient states she was "being treated like a dog," so that she put a mattress on the floor and slept on the floor last night.) Patient denies SI/HI/VH/SIB but continues to have nonthreatening, noncommand AH of family members "giving me advice." Patient denies side effects to medication. Patient eating well. Patient explained hoarding medications for her trip to [facility]. Denies pain or any other physical complaints. Objective: Patient was adherent with medications and in behavioral control. Per nursing, patient slept most of the night but was awake briefly at times and asking if staff needed help. Patient has been complaining of toothache over the weekend. VSS. Current Medications Sig/Krupa Start time Last Medication Dose Route Stop Time Status Admin Acetaminophen 650 MG Q8P PRN 09/28 1715 AC 10/02 PO 2109 Atorvastatin Calcium 20 MG 5PM 09/29 1700 AC 10/06 PO 1809 Benzocaine 1 ENRIQUE Q6-PRN PRN 10/03 1045 AC 10/03 TOP 1351 Levothyroxine Sodium 0.15 MG DAILY AC 09/29 0700 AC 10/07 PO 0632 [place] Carbonate 600 MG BID 09/28 2100 AC 10/06 PO 2200 Lorazepam 2 MG AT BEDTIME 10/03 2100 AC 10/06 PO 2200 Lorazepam 1 MG 0800,1400 10/03 1400 AC 10/06 PO 1356 Quetiapine Fumarate 600 MG AT BEDTIME 10/02 2100 AC 10/06 PO 2200 Quetiapine Fumarate 50 MG Q4 HRS NEEDED PRN 10/02 1530 AC 10/05 PO 1459 Vital Signs Date Time Temp Pulse Resp B/P B/P Pulse O2 O2 Flow FiO2 Mean Ox Delivery Rate 10/07 0755 98.0 91 135/79 10/06 1953 97.9 88 126/74 10/06 1541 96 140/87 10/06 1203 93 135/86 MSE: General: Patient alert and oriented to self and place, unkempt, intense eye contact, pressured and angry, isolative. Speech: Moderate rate and volume, normal prosody but mildly pressured Motor: No tics, tremors, stereotypy or other abnormal movements apparent. Mood: "I'm fine. I want to get the hell out of here." Affect: Angry, mildly constricted, mood incongruent, mildly-labile, poorly related. Thought process: Perseverative Thought content: No SI/HI/VH/SIB, +AH of family giving her advice. Cognition: No apparent deficits in memory, attention, concentration. Insight: Poor Judgment: Poor-Fair, able to remain in behavioral control today but fighting with remain last night. A&P: 52 old female with bipolar disorder MRE manic, HLD and hypothyroidism , presenting as irritable, suspicious, disorganized and complaining of toothache over weekend. Today, patient is still angry but remaining isolative and in behavioral control. Patient has been adherent with medications. Patient quite adamant on being discharged tomorrow but still showing poor insight and likely not at baseline yet. -Maintain safety, every 15 minute checks, encourage OOB -Continue medications as above -Aftercare plan with [facility]. -Continue plan
[2017-10-07 12:03] VITALS: BP 138/84
[2017-10-07 20:00] VITALS: BP 141/74
[2017-10-08 08:03] VITALS: BP 138/90
--- NOTE | 2017-10-08 10:59 | SOCIAL WORKER PROG NOTE PSYCH ---
Social Work Progress Note Progress Note Ralph was agreeable to meeting with Dr. Adler and I this morning, but made a statement "I better be leaving today though." I asked how he weekend was? She said "peachy keen." Dr. Adler asked her some questions about what brought her in. She looked annoyed by his questions and at one point rolled her eyes and said "I should just stay another week." She talked about not taking her meds as prescribed in an attempt to "carlos some pills" to go to [facility] with her for a few months. She reported her displeasure with being here in the hospital as she has "things to do." She looked irritated and pressured. She reports she feels angry today. Rating her anger at a 7/8 (on a scale of 0-10, 10 being severe). She denies feeling sad or anxious. Reports high energy. Dr. Adler will be ordering a [place] level since one hasn't been done since 09/29. Dr. Adler let her know she would not being leaving today. She then proceeded to get up and leave the office. Called both daughters to reschedule the family meeting planned for today, due to Dr. Adler being unable to attend and Ralph not being ready for d/c. Both daughters came by to bring her some clothes. While they were here they rescheduled the meeting for tomorrow at 3:30pm.
--- NOTE | 2017-10-08 11:27 | SOCIAL WORKER PROG NOTE PSYCH ---
Social Work Progress Note Progress Note PENDED The services requested require additional review. You will be contacted regarding the status of this request if further information is needed. An authorization decision will be made within the required timeframes and details of that decision may be found under the member's authorization history. Member Name Member ID Member Subscriber Name Subscriber ID BEENA ROMERO [id number] BEENA ROMERO [id number] Pended Authorization # Client Authorization # Type of Request [id number] CONCURRENT Date of Admission/ Start of Services Requested From Submission Date 09/28/2017 10/08/2017 10/08/2017
[2017-10-08 11:50] VITALS: BP 109/88
[2017-10-08 16:00] VITALS: BP 136/79
--- NOTE | 2017-10-08 18:00 | CP SOUTH PROGRESS NOTE PSYCH ---
Psych (Inpt) Progress Note Progress Note Include the following elements, when applicable: Involvement in the active treatment of the patient with behavioral observations of the patient and the patient's response to the treatment. Review of the ongoing treatment process in the context of the treatment plan. Indication of how multi-disciplinary staff members are carrying out the treatment plan. Plans for future interventions and recommendations for revision of the treatment plan. Liaison with other physicians/providers. Progress Note: Medication list reviewed. Case and treatment plan discussed in team meeting. Staff reports that the patient was not fully compliant with medications prior to admission. She was agitated and delusional on presentation. Daughter reportedly is filing for conservatorship. Described as labile, agitated, yelled at staff. Medication compliant. Patient seen at 10:31 AM with executive secretary social welfareDarby. Patient describes the weekend as "peachy keen." States she did not have a normal chayo as she normally does. Reports this hospitalization she was not manic but had a nervous breakdown from all the stress around her. States she had not slept for about a week. Daughter called the police because the patient would not go to the hospital voluntarily. Patient reports she was not taking her medications properly at home, maybe at half doses, because she was saving up medications, planning to go with her on a trip to [place] and she was concerned she would not have medications supplied there. 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 Affect is mildly irritable and animated. Mood is angry because she wants to be out of here. States she hates hospitals. Rates anger about 7-8/10, anxiety 0/10 and sad mood 0/10. Denies feeling hopeless, helpless , worthless or guilty. Denies active and passive suicidal ideation. Denies homicidal ideation. Denies auditory and visual hallucinations and paranoid ideation. Patient is oriented 3 but she gives the date as 2017, October 07. Reports sleep is fine, appetite is too much because she is bored. Energy is described as high, stating that she is very active. Tolerating medications well. Patient reports she applied for 2 jobs and she is anxious to get home. She was advised that she can file for a probable cause hearing. IMPRESSION: Slow progress. Continue present treatment plan. Patient does not seem fully stabilized. We will check a lithium level in the morning.
[2017-10-08 19:51] VITALS: BP 138/89
[2017-10-09 08:18] VITALS: BP 125/85
--- NOTE | 2017-10-09 08:38 | SOCIAL WORKER PROG NOTE PSYCH ---
Social Work Progress Note Progress Note Called [facility] to reschedule her appt. with Malissa Courtney APRN. New appt. 10/30 3:30pm. Family meeting held with daughters Mony and Chelle. Dr. Adler was also in attendance. Ralph expressed her desire to leave soon and get back to working on things so she can start to make money and support herself again. Ralph talked about how she reduced her meds in hope to save pills to take on vacation with her to [place]. We talked about how there were better ways to handle this, such as going to her prescriber and letting her know she is looking to take a vacation. Daughters expressed their concern in her returning to the hospital each year and this continuing to happen. They would like to see her get a visiting nurse and a family preservation caseworker. Ralph put up a bit of disagreement initially, but then came around to agreeing. She signed a release for [facility]. She does not want her clinical services at [facility] and would like those to remain at [facility]. She was not open to doing IOP. She doesn't consider herself a social person and didn't agree to the hours as she felt it would take away from work. I let them know that I would need to check to see if Ralph is eligible through her [employer] insurance for VNS. Dr. Adler reviewed medications that Ralph is currently prescribed and talked about weening her off the Ativan. Ralph was able to tolerate this meeting. Praised her on the progress I am seeing. She was calm and smiling at the end. Pleased to spend time with her daughters. Looking to d /c Saturday. Faxed a referral to [facility] and left the information technology coordinator a voicemail.
[2017-10-09 12:25] VITALS: BP 132/78
[2017-10-09 16:47] VITALS: BP 133/80
--- NOTE | 2017-10-09 18:04 | CP SOUTH PROGRESS NOTE PSYCH ---
Psych (Inpt) Progress Note Progress Note Include the following elements, when applicable: Involvement in the active treatment of the patient with behavioral observations of the patient and the patient's response to the treatment. Review of the ongoing treatment process in the context of the treatment plan. Indication of how multi-disciplinary staff members are carrying out the treatment plan. Plans for future interventions and recommendations for revision of the treatment plan. Liaison with other physicians/providers. Progress Note: Case and treatment plan discussed in team meeting. [place] level is 0.8. Staff reports that the patient settled down yesterday afternoon. Family meeting was scheduled with daughters for 3:30 PM. Patient apparently told staff she was not going to groups. Patient seen at 1:53 PM. She was asleep in her room but got up and met with me in office. Feels good. Has no complaints. Anticipates family meeting today. Affect is calm and blunted, not irritable. I informed her of anticipated discharge on Saturday and she responded "2 more days and this nightmare is over." Affect is brighter today. Mood is tired, stating that she is going back to sleep. Rates sad mood and anxiety both 0/10. Denies feeling hopeless, helpless , worthless or guilty. Denies active and passive suicidal ideation. Denies homicidal ideation. Denies auditory and visual hallucinations and paranoid ideation. Describes sleep and appetite as good. Reports energy is good but she expects more energy after discharge when she can resume biking and walking. Tolerating medications well. I attended family meeting with patient, daughters and social services analyst, Darby. Patient was resistant to recommendations for IOP and to having a case finishing machine adjuster. She ultimately agreed to a visiting nurse. IMPRESSION: Condition improving. Anticipate discharge on Saturday. We will now reduce standing Ativan to 0.5 mg twice daily and 1 mg nightly. Plan is for discharge on Saturday to home with referral back to [facility] for outpatient treatment.
[2017-10-09 19:55] VITALS: BP 134/78
[2017-10-10 08:08] VITALS: BP 127/78
[2017-10-10 12:04] VITALS: BP 138/78
--- NOTE | 2017-10-10 12:46 | SOCIAL WORKER PROG NOTE PSYCH ---
Social Work Progress Note Progress Note Ralph is eligible for visiting nurse services through [facility] so I will be connecting her for services. Spoke with [facility] intake. They will do an intake for case management services. Next intake for is on 10/22 2pm. Called her daughter Greg and informed her of the above information. Referred Ralph to [facility]. They can see her tomorrow around 3pm. Talked with Ralph who was resting in bed. Reported that she has been spending time today reading and writing. She was pleasant, calm, and smiling. She is looking forward to d/c tomorrow. She talked about looking forward to her daughter's wedding in February and looking forward to eventually being a grandmother. She seems appreciative of her daughter's support. 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
[2017-10-10 15:52] VITALS: BP 137/68
--- NOTE | 2017-10-10 17:39 | CP SOUTH PROGRESS NOTE PSYCH ---
Psych (Inpt) Progress Note Progress Note Include the following elements, when applicable: Involvement in the active treatment of the patient with behavioral observations of the patient and the patient's response to the treatment. Review of the ongoing treatment process in the context of the treatment plan. Indication of how multi-disciplinary staff members are carrying out the treatment plan. Plans for future interventions and recommendations for revision of the treatment plan. Liaison with other physicians/providers. Progress Note: Case and treatment plan discussed in team meeting. Staff reports that the patient is denying suicidal ideation. Described as calm and apologetic for prior difficult behavior. We are referring the patient to [facility] [place] for case management. Patient seen at 10:28 AM. She was asleep in bed but got up and met with me in office. States she is good. States she is sleeping and relaxing before she goes home and has a million and a half things to do. Reports she has no vehicle , so she will be biking everywhere to do her chores. I advised her that she needs a bicycle helmet. Affect is calm and blunted. Appears mildly sedated. Mood is fine. Rates sad mood and anxiety 0/10. Denies feeling hopeless, helpless, worthless or guilty. Denies suicidal and homicidal ideation. Denies auditory and visual hallucinations and paranoid ideation. Reports she has been sleeping well for the last 3 days. Describes appetite and energy as good. Tolerating medications well, without complaint. We will stop daytime Ativan as of tomorrow. IMPRESSION: Condition improving. Anticipate discharge tomorrow with follow-up at [facility]. Patient will have a visiting nurse if possible.
[2017-10-10 19:42] VITALS: BP 135/77
[2017-10-11 07:43] VITALS: BP 122/80
[2017-10-11 12:07] VITALS: BP 138/80
[2017-10-11] MEDS ORDERED: SEROQUEL300 M1 PO (13:10)
[2017-10-11] MEDS ORDERED: ATIVAN1 M1 PO (13:10)
[2017-10-11] MEDS ORDERED: LITHIUM CARBON300 M4 PO (13:10)
--- NOTE | 2017-10-11 13:22 | Patient Discharge Instructions ---
Psych Discharge Inst General Discharge Information Reason for Admission: Had been taking reduced medication doses to conserve pills for trip to [place]. Predominantly presented with manic features. Patient presented concerns of psychosis (auditory hallucinations, paranoia, chayo). PEER stateed patient was "agitated - rambling" and stated she heard family members voices in head and they spoke to her. Stated that if she was committed to the hospital "they" would crucify her. Was observed putting out a cigarette with her hand. Psy Discharge Primary Diag+ Bipolar disorder, unspecified Psy Discharge Secondary Diag+ Hyperlipidemia Hypothyroidism Summary Tests/Major Procedures Lab ALT 34 U/L 09/28/17 1302 AST 27 U/L 09/28/17 1302 BUN 12 mg/dL 09/28/17 1302 Calcium 10.1 mg/dL 09/28/17 1302 Carbon Dioxide 26 mmol/L 09/28/17 1302 Chloride 107 mmol/L 09/28/17 1302 Cholesterol 137 MG/DL 09/29/17 0655 Cholesterol/HDL Ratio 3 % 09/29/17 0655 Creatinine 0.8 mg/dL 09/28/17 1302 Estimated GFR > 60 ml/min 09/28/17 1302 Free T4 1.19 ng/dL 09/29/17 0655 Glucose 109 mg/dL H 09/28/17 1302 HDL Cholesterol 40 mg/dL 09/29/17 0655 Hemoglobin A1c 5.6 % 09/29/17 0655 LDL Cholesterol, Calc 45 mg/dL L 09/29/17 0655 Potassium 3.8 mmol/L 09/28/17 1302 Sodium 145 mmol/L 09/28/17 1302 TSH &T3 &Free T4 Intrp 5.660 uIU/mL H 09/28/17 0308 TSH &T3 &Free T4 Intrp 7.050 uIU/mL H 09/29/17 0655 Total T3 1.06 ng/mL 09/29/17 0655 Triglycerides 262 mg/dL H 09/29/17 0655 Vitamin B12 338 pg/mL 09/29/17 0655 Hct 38.7 % 09/28/17 1302 Hgb 12.9 G/DL 09/28/17 1302 Plt Count 292 /CUMM 09/28/17 1302 WBC 8.0 /CUMM 09/28/17 1302 Morse 1.0 mmol/L 09/28/17 0308 Morse 1.1 mmol/L 09/28/17 1302 Morse 1.0 mmol/L 09/29/17 0655 Morse 0.8 mmol/L 10/09/17 0640 EKG 09/28/17 showed sinus rhythm @ 89, borderline T abnormalities, anterior leads , minor changes since previous tracing, borderline EKG, QT 394, QTc 412. Studies Pending at DC: None. Patient Instructions Contact Information Your Psychiatrist on [facility] was Chaitanya Adler MD * If you are experiencing an emergency related to this hospitalization, please call [phone] to contact the treating psychiatrist or the psychiatrist-on- call. * To Request a copy of your medical records, please contact the Medical Records Department at [phone]. * To request results of studies pending at the time of discharge, please call [phone]. * Continue your Medications until directed to stop by your Healthcare provider. General Medication Information Please continue to take your new medications and your continued home medications , unless otherwise indicated on your discharge medication list, or unless directed by your MD or DRAWING MACHINE OPERATOR to stop them. Special Instructions Diet Regular Activity Normal Other Inst/Recommendations See PCP about labs/thyroid/EKG. Have lithium levels monitored. - Tobacco Use Treatment Offered Post DC Medications Offered: Refused Tob Medication Tx Post DC Tobacco Treatment Plan: [facility] Program Appt Date: 10/23/17 Program Appt Time: 1600 - EtOH/Drug Use D/O Treatment Offered Post DC Medications Offered: NA-No EtOH/Drug Use D/O Post DC EtOH/SubAbuse TX Plan: NA-No EtOH/Drug Use D/O Metabolic Screening () Not Applicable, patient not on a neuroleptic. OR () Patient on a neuroleptic(s) . Enter below results for Hemoglobin A1C, and lipid panel if obtained during the last 365 days. BMI: 37.700 Blood Pressure: 138/80 Laboratory Results From [facility] (If applicable): [x] Lab Cholesterol 137 MG/DL 09/29/17 0655 Cholesterol/HDL Ratio 3 % 09/29/17 0655 HDL Cholesterol 40 mg/dL 09/29/17 0655 Hemoglobin A1c 5.6 % 09/29/17 0655 LDL Cholesterol, Calc 45 mg/dL L 09/29/17 0655 Triglycerides 262 mg/dL H 09/29/17 0655 Advance Directives Does the Patient have Medical Advance Directives No/Refused further info Does Pt have Psychiatric Advance Directives? No/Refused further info Does Patient have a Designated Surrogate Decision Maker: No Information About Psychiatric Advance Directives Provided? Refused Discharge Plan Post Hospital Treatment Plan: Returning to home. [facility] for therapy and medication management. [facility] referral for case management. [facility] visiting nurse. Bridging medication management at [facility].
--- NOTE | 2017-10-11 13:31 | SOCIAL WORKER PROG NOTE PSYCH ---
Social Work Progress Note Progress Note Ralph was showered and dressed nicely in preparation for discharge today. She was happy to be leaving and getting back to doing some things that she needs to follow up with. 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 She talked about needing to buy a new car to get started back up again. She smiled as she talked and was in a stable mood. We reviewed her d/c plans and I let her know she was going to need a bridge appt. at [facility], due to not having an appt. with Malissa Sherwin MIRANDA until 10/30. She was fine with that plan. I informed her that [facility] would see her today at 3pm. She worried a bit about the schedule with the nurse and how that would impact her. I encouraged her to communicate her needs to the nurse and work it out with them. She feeling very positive about life and the things she needs to work on. Called [facility] and scheduled an intake for 10/17 with Mary rubio is with Dr. Ridley on 10/25 at 8:30am. Called [facility] to confirm the plan for d/c today and that they will see her at 3pm.
--- NOTE | 2017-10-11 14:31 | SOCIAL WORKER PROG NOTE PSYCH ---
Social Work Progress Note Faxed Referral(s) 1 Referred To: Care Transition of Care Documents sent: Health Summary, W10 Faxed to: Care Fax #: [phone] Faxed by: Darby Salazar Date faxed: 10/11/17 Time Faxed: [phone] Faxed Referral(s) 2 Referred To: [facility] Transition of Care Documents sent: Health Summary, W10 Faxed to: [place] Fax #: [phone] Faxed by: Darby Salazar Date faxed: 10/11/17 Time Faxed: [phone] Faxed Referral(s) 3 Referred To: [facility] Transition of Care Documents sent: Health Summary, W10 Faxed to: [facility] Fax #: [phone] Faxed by: Darby Salazar Date faxed: 10/11/17 Time Faxed: [phone] Faxed Referral(s) 4 Referred To: [facility] Transition of Care Documents sent: Health Summary, W10 Faxed to: [facility] Fax #: [phone] Faxed by: Darby Salazar Date faxed: 10/11/17 Time Faxed: [phone]
--- NOTE | 2017-10-11 15:55 | CP SOUTH PROGRESS NOTE PSYCH ---
Psych (Inpt) Progress Note Progress Note Include the following elements, when applicable: Involvement in the active treatment of the patient with behavioral observations of the patient and the patient's response to the treatment. Review of the ongoing treatment process in the context of the treatment plan. Indication of how multi-disciplinary staff members are carrying out the treatment plan. Plans for future interventions and recommendations for revision of the treatment plan. Liaison with other physicians/providers. Progress Note: Case and treatment plan discussed in team meeting. Staff reports that the patient is denying suicidal ideation. Doing better. Calm, cooperative and pleasant. Verbalizing the need to be discharged but is pleasant about it. Patient will see her therapist on Saturday. [facility]. Patient will be followed by [facility] visiting nursing. Patient has an appointment with Mary Courtney APRN at [facility] on 10/30/17. We will provide the patient a bridging appointment with Dr. Ridley on 10/25/17. Patient seen at 1:24 PM. States "I'm good." Has no complaints. Appears awake and alert. Thinking is organized. Affect is calm and euthymic. Patient is looking forward to going home and getting back to the routine of things. 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 Reports mood as "I feel good about myself." Rates sad mood and anxiety both 0/10. Denies feeling manic. Denies feeling hopeless, helpless, worthless or guilty. Denies active and passive suicidal ideation. Denies homicidal ideation. Denies auditory and visual hallucinations and paranoid ideation. Reports she has slept very well here. Appetite is good. Reports she will never run out of energy. Tolerating medications well, without complaint. Feels ready and safe for discharge. IMPRESSION: Condition improved. Okay for discharge today to home with follow-up as above.
--- NOTE | 2017-10-11 16:01 | DISCHARGE SUMMARY REPORT-PSYCH ---
Visit Information Visit Dates/Diagnosis' Admission Date: 09/28/17 Discharge Date: 10/11/17 Reason for Admission: Had been taking reduced medication doses to conserve pills for trip to [place]. Predominantly presented with manic features. Patient presented concerns of psychosis (auditory hallucinations, paranoia, chayo). PEER stateed patient was "agitated - rambling" and stated she heard family members voices in head and they spoke to her. Stated that if she was committed to the hospital "they" would crucify her. Was observed putting out a cigarette with her hand. Psy Discharge Primary Diag: Bipolar disorder, unspecified Psy Discharge Secondary Diag: Hyperlipidemia Hypothyroidism Hospital Course Significant Lab Findings: Lab ALT 34 U/L 09/28/17 1302 AST 27 U/L 09/28/17 1302 BUN 12 mg/dL 09/28/17 1302 Calcium 10.1 mg/dL 09/28/17 1302 Carbon Dioxide 26 mmol/L 09/28/17 1302 Chloride 107 mmol/L 09/28/17 1302 Cholesterol 137 MG/DL 09/29/17 0655 Cholesterol/HDL Ratio 3 % 09/29/17 0655 Creatinine 0.8 mg/dL 09/28/17 1302 Estimated GFR > 60 ml/min 09/28/17 1302 Free T4 1.19 ng/dL 09/29/17 0655 Glucose 109 mg/dL H 09/28/17 1302 HDL Cholesterol 40 mg/dL 09/29/17 0655 Hemoglobin A1c 5.6 % 09/29/17 0655 LDL Cholesterol, Calc 45 mg/dL L 09/29/17 0655 Potassium 3.8 mmol/L 09/28/17 1302 Sodium 145 mmol/L 09/28/17 1302 TSH &T3 &Free T4 Intrp 5.660 uIU/mL H 09/28/17 0308 TSH &T3 &Free T4 Intrp 7.050 uIU/mL H 09/29/17 0655 Total T3 1.06 ng/mL 09/29/17 0655 Triglycerides 262 mg/dL H 09/29/17 0655 Vitamin B12 338 pg/mL 09/29/17 0655 Hct 38.7 % 09/28/17 1302 Hgb 12.9 G/DL 09/28/17 1302 Plt Count 292 /CUMM 09/28/17 1302 WBC 8.0 /CUMM 09/28/17 1302 [place] 1.0 mmol/L 09/28/17 0308 [place] 1.1 mmol/L 09/28/17 1302 [place] 1.0 mmol/L 09/29/17 0655 [place] 0.8 mmol/L 10/09/17 0640 EKG 09/28/17 showed sinus rhythm @ 89, borderline T abnormalities, anterior leads , minor changes since previous tracing, borderline EKG, QT 394, QTc 412. Course Complications: None. Consultations: Patient was seen by Dr. Agudelo for admission H&P. Per Dr. Agudelo's note of 09/28/17: " Assessment/Plan Assessment: # Dental Pain : continue PRN acetaminophen or NSAID, no e/o swelling or inflammation # Bipolar disorder with Chayo : agree with Psych plan # HLD : continue statin # Hypothyroidism : continue levothyroxine " Allergies: Coded Allergies: No Known Allergies (09/28/17) Hospital Course/TX Response: The patient was monitored on the unit for safety, psychosis and mood disorder. Home medications were ordered. Ativan was ordered and will be tapered to off. The patient participated in multi-modal treatments on the unit. There was a successful family meeting with her daughters. Mood and affect have improved greatly. Progress note from date of discharge, 10/11/17: "Case and treatment plan discussed in team meeting. Staff reports that the patient is denying suicidal ideation. Doing better. Calm, cooperative and pleasant. Verbalizing the need to be discharged but is pleasant about it. Patient will see her therapist on Saturday. She has an [facility] on 10/22/17. Patient will be followed by [facility] for visiting nursing. Patient has an appointment with Mary Courtney APRN at [facility] on 10/30/17. We will provide the patient a bridging appointment with Dr. Ridley on 10/25/17. Patient seen at 1:24 PM. States "I'm good." Has no complaints. Appears awake and alert. Thinking is organized. Affect is calm and euthymic. Patient is looking forward to going home and getting back to the routine of things. 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 Reports mood as "I feel good about myself." Rates sad mood and anxiety both 0/10. Denies feeling manic. Denies feeling hopeless, helpless, worthless or guilty. Denies active and passive suicidal ideation. Denies homicidal ideation. Denies auditory and visual hallucinations and paranoid ideation. Reports she has slept very well here. Appetite is good. Reports she will never run out of energy. Tolerating medications well, without complaint. Feels ready and safe for discharge. IMPRESSION: Condition improved. Okay for discharge today to home with follow-up as above." Discharge HBIPS - Tobacco Use Treatment Offered Post DC Medications Offered: Refused Tob Medication Tx Post DC Tobacco Treatment Plan: [facility] Program Appt Date: 10/23/17 Program Appt Time: 1600 - EtOH/Drug Use D/O Treatment Offered Post DC Medications Offered: NA-No EtOH/Drug Use D/O Post DC EtOH/SubAbuse TX Plan: NA-No EtOH/Drug Use D/O Metabolic Screening - Screen if on a Neuroleptic Medication - Metabolic screening should include: - Blood Pressure, BMI, Glucose or Hgb A1c, & a - Lipid profile from within the past 365 days. Metabolic Screening () Not Applicable, patient not on a neuroleptic. OR () Patient on a neuroleptic(s) . Enter below results for Hemoglobin A1C, and lipid panel if obtained during the last 365 days. BMI: 37.700 Blood Pressure: 138/80 Laboratory Results From [facility] (If applicable): [x] Lab Cholesterol 137 MG/DL 09/29/17 0655 Cholesterol/HDL Ratio 3 % 09/29/17 0655 HDL Cholesterol 40 mg/dL 09/29/17 0655 Hemoglobin A1c 5.6 % 09/29/17 0655 LDL Cholesterol, Calc 45 mg/dL L 09/29/17 0655 Triglycerides 262 mg/dL H 09/29/17 0655 Discharge Instructions General Discharge Information Multiple Neuroleptics: ([x]) Not Applicable OR Document below three failed attempts at monotherapy, or a plan to taper to monotherapy, or augmentation of Clozapine. () Discharge Diet Regular Discharge Activity Normal DC Disposition: Returning to home. Referrals Ordered Referrals Provider Referral 10/14/17 For Groups: [[facility] Gm] [facility] Appt. with therapist [place] on 10/14/17 12:30[place] [address] Provider Referral 10/30/17 For Groups: [[facility]] [facility] appt. with Malissa Courtney APRN 10/30/17 3:30pm [address] [place] [address] Provider Referral 10/22/17 For Groups: [ Care] [facility] intake appt. for case management 10/22/17 2pm [address] [place] [address] Provider Referral 10/11/17 For Groups: [[facility]] [facility] daily medication administration visits 7 days a week To start 10/11/17 Provider Referral 10/17/17 For Groups: Outpatient Psychiatry Intake for [facility] 10/17/17 2pm with Mary [address] [place] [address] Provider Referral 10/25/17 For Groups: Outpatient Psychiatry [facility] appt. at [facility]. Ridley 10/25/17 8:30am [address] [place] [address] Provider Referral 10/23/17 For Groups: Outpatient Psychiatry [facility] 10/23/17 4pm [address] [place] [address] Prescriptions Stop taking the following medications: Quetiapine Fumarate (Quetiapine Fumarate) 300 MG TABLET ORAL Every night Qty = 30 Continue taking these medications: Atorvastatin Calcium (Atorvastatin Calcium) 20 MG TABLET 1 Tablet ORAL DAILY Qty = 30 Comments: Last Taken:10/10/17 Time:5pm Levothyroxine Sodium (Levothyroxine Sodium) 150 MCG TABLET 1 Tablet ORAL DAILY Comments: Last Taken:10/10/17 Time:7am [place] Carbonate ([place] Carbonate) 300 MG CAPSULE 2 Capsule ORAL TWICE DAILY Qty = 56 Comments: Last Taken:10/11/17 Time:8am This prescription has been renewed Start taking the following new medications: LORazepam (Ativan) 1 MG TAB 1 Tablet ORAL AT BEDTIME Qty = 3 No Refills Comments: Last Taken:10/10/17 Time:10pm Quetiapine Fumarate (Seroquel) 300 MG TABLET 2 Tablet ORAL AT BEDTIME Qty = 28 No Refills Comments: Last Taken:10/10/17 Time:10pm Other Inst/Recommendations See PCP about labs/thyroid/EKG. Have lithium levels monitored. Studies Pending at Discharge None. Copies To: ELIECER CHANCE,CHARLIE Courtney RN,Mary Martins
== END 2017-10-11 14:05 | DRG 885 ==
LOC: ERH 12:26 → ERHI 15:58 → CP SOUTH 15:58 → ENTRNSPT 16:26 → EDTRNSPTSTS 16:40 → CP SOUTH 17:01 → CMPTRNSPT 17:11 → CP SOUTH 19:50
PROVIDERS: Physician Assistant; Student in an Organized Health Care Education/Training Program
DX: F31.9 Bipolar disorder, unspecified (principal); E78.5 Hyperlipidemia, unspecified; E03.9 Hypothyroidism, unspecified
CPT/HCPCS: 36415; 80307; 81003; 93005; 93010; G0480

== ENCOUNTER 2017-12-09 12:48 | Inpatient (IN) | payer OTHER, MEDICARE ==
[~2017-12-09] VITALS: Ht 157.5 cm; Wt 88.1 kg
[~2017-12-09 12:48] MED LIST changes: +ATIVAN1 M1 PO; +LEVOTHYROXINE150 MCG PO; +SEROQUEL300 M1 PO
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
[2017-12-09 14:39] LABS: ABSOLUTE BASOPHIL COUNT 0 /CUMM (0.0-0.2); ABSOLUTE EOSINOPHIL COUNT 0.2 /CUMM (0.0-0.7); ABSOLUTE GRANULOCYTE CT 9.4 /CUMM (1.4-6.5); ABSOLUTE LYMPH COUNT 2.8 /CUMM (1.2-3.4); ABSOLUTE MONOCYTE COUNT 0.5 /CUMM (0.10-0.60); BASOPHIL % 0.3 % (0.0-2.0); EOSINOPHIL % 1.5 % (0-5); GRANULOCYTE % 72.5 % (42.2-75.2); HEMATOCRIT 39.3 % (37-47); MEAN CORPUSCULAR HGB 30.2 PG (27.0-31.0); MEAN CORPUSCULAR HGB CONC 33.8 G/DL (33.0-37.0); MEAN CORPUSCULAR VOLUME 89.4 FL (81.0-99.0); PLATELET COUNT 288 /CUMM (130-400); RBC DISTRIBUTION WIDTH 13.4 % (11.5-14.5); WHITE BLOOD CELL COUNT 12.9 /CUMM (4.8-10.8)
[2017-12-09] MEDS ORDERED: CLONAZEPAM0.5 M2 PO (14:56)
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
[2017-12-09 16:18] LABS: LITHIUM 1.4 mmol/L (0.6-1.2)
--- NOTE | 2017-12-09 19:06 | ED PSYCH CRISIS CONSULTATION ---
Crisis Consult Basic Assessment Chief Complaint: Psychiatric Related Complaint Who Do You Live With? Patient/Self Allergies - Coded Allergies: No Known Allergies (09/28/17) Current Medications - Scheduled Medications Atorvastatin Calcium 20 MG TABLET 1 TAB PO DAILY CHOLESTEROL #30 (Reported) Entered as Reported by Gonzalo Barber on 11/15/15 1007 Clonazepam 0.5 MG TABLET 1 TAB PO QPM SLEEP #30 (Reported) Entered as Reported by Gonzalo Barber on 12/09/17 1456 Levothyroxine Sodium 150 MCG TABLET 1 TAB PO DAILY AC THYROID (Reported) Entered as Reported by Elodia Renae on 09/28/17 1639 [place] Carbonate 300 MG CAPSULE 2 CAP PO BID BIPOLAR DISORDER #56 CAP Prescribed by Chaitanya Adler MD on 10/11/17 Quetiapine Fumarate (Seroquel) 300 MG TABLET 2 TAB PO AT BEDTIME sleep/bipolar disorder #28 TAB Prescribed by Chaitanya Adler MD on 10/11/17 Past History Past Medical History Neurological: NONE EENT: NONE Cardiovascular: hyperlipidemia Respiratory: NONE Gastrointestinal: constipation Hepatic: NONE Renal: NONE Musculoskeletal: NONE Psychiatric: bipolar disease, depression, insomnia, schizo affective disorder Endocrine: hypothyroidism Blood Disorders: NONE Cancer(s): NONE 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 Physical Limitations (Interventions): none reported Psychiatric Treatment History Diagnosis by History: Bipolar disorder I DSM5/PS Stressors/Medical Prob Diagnosis' (DSM 5, Stressors, Medical): Bipolar D/O F31.2 Current GAF: 20 Comments: pt reports HI towards ex- and cant committ to not harming him. pt also reporting stress related to hearing negative voices. pt willing to be admitted to adjust medications. Departure Disposition Psych Medical Clearance Date: 12/09/17 Medically Cleared at: 1600 Time Started: 1600 Time Ended: 1645 Psychiatrist Consulted: Chaitanya Adler MD Date Disposition Established: 12/09/17 Time Disposition Established: 1700 Plan for Disposition - Modality: Inpatient Psychiatry Facility: [facility] Rationale for Disposition: mood stabilization; medication assessment Type of IP Admission: Voluntary Additional Instructions: Provider at [facility] considering decrease of seroquel and a trial of zyprexa or abilify Referrals Paulina [facility] APRN (PCP/Family)
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
[2017-12-09 22:11] VITALS: BP 122/79
[2017-12-10 08:06] VITALS: BP 147/83
[2017-12-10 08:07] LABS: LITHIUM 1.3 mmol/L (0.6-1.2)
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
[2017-12-10 19:51] VITALS: BP 136/77
[2017-12-11 08:00] VITALS: BP 124/85
--- NOTE | 2017-12-11 10:46 | SOCIAL WORKER PROG NOTE PSYCH ---
Social Work Progress Note Progress Note Ralph was pacing the unit this morning in an irritable mood. She was talking to herself as she walked. Angrily stating she is changing her last, she is not "Nixon". Most likely she remains angry at her ex . Later approached me and stated she wants to sign a 3 day paper to terminate voluntary status. Said she needs to leave the state and get away from everyone. She signed the paper. I explained the process and told her that the 3 business days would be up on Saturday afternoon. She understands that if we are not inclined to d/c that day we would be filing for a commitment hearing.
--- NOTE | 2017-12-11 11:21 | CP SOUTH PROGRESS NOTE PSYCH ---
Psych (Inpt) Progress Note Progress Note Vital Signs Date Time Temp Pulse B/P B/P Pulse O2 12/11 08 97.2 76 124/85 12/10 1950 98.4 74 136/77 Mental Status Examination: Alert and oriented to time, place, and person. Steady gait, Unremarkable appearance, she was calm/not irritable today. She was more cooperative, slightly increased psychomotor activity, No abnormal or bizarre behaviors. She was not pressured when she was not slurred, she reported that her mood is better now that she is here (inpatient), she reported that she frustrated and angry with ex-, thinks he wants to control her life She thinks he wants her to take care of him because of his physical health problems Denied thinking of suicide, Denied thinking of violence or homicide today. Denied hearing voices of family members today, denied that she is paranoid, there were no specific delusions during the interview. She was coherent. Limited insight, questionable judgment, No significant difficulties with information processing. Normal memory Assessment: Ralph is a 52-year-old white female who presented to [facility] 's emergency department after [place] [employer] got involved and the patient was brought in by ambulance on a police emergency examination request. Diagnosis(es): Bipolar 1, mixed episode Treatment Plan: [place] Level yesterday (true trough level) was still elevated at 1.3 mmol/L therefore [place] dose reduced to 450 mg BID (will hold tonight's dose) reduce Seroquel to 500 mg at bedtime Continue all other medications unchanged Impression and Plan: 52-year-old white female who presented to [facility]'s emergency department after [place] [employer] got involved and the patient was brought in by ambulance on a police emergency examination request.. The collateral information provided by [facility] indicated that the patient's adult daughter, Timi, reported that the patient has been engaging in erratic and manic behaviors and that mobile crisis went out to the house and that when she fled police were called - Include all active medical diagnosis that require tx DSM 5 Diagnosis(es): Bipolar 1, mixed episode - Initial Tx Plan for Active Psych & Medical Conditions Treatment Plan: Inpatient psychiatric care The patient did not want changes in her medications at this point. She was continued at the same medications that she was being prescribed by her LEVER OPERATOR at [facility]
[2017-12-11 19:58] VITALS: BP 120/69
[2017-12-12 07:42] VITALS: BP 137/88
--- NOTE | 2017-12-12 11:16 | SOCIAL WORKER PROG NOTE PSYCH ---
Social Work Progress Note Progress Note Ralph met with Dr. Ward and I this morning. She was less irritable and hostile about people today. She talked about hearing auditory hallucinations of various family members including her ex- . She stated that the voices are negative at times as they are usually causing arugments or telling lies. She said she did not hear voices at her last admission and this is a symptom that has just started more recently. She finds the voices to be disturbing. When talking about her ex Justus today, she continues to talk about him being very controlling. She denies wanting to act on a plan to kill him, but admitted saying those things. She reports wanting to get better and get on with her life at home. She was okay with signing a release for her daughters and for [facility]. She was willing to try a new antipsychotic today to help manage her auditory hallucinations.
--- NOTE | 2017-12-12 11:41 | SOCIAL WORKER PROG NOTE PSYCH ---
Social Work Progress Note Progress Note BEENA ROMERO [id number] 1965 BEENA NICK [id number] Pended Authorization # Client Authorization # Type of Request [id number] CONCURRENT Date of Admission/ Start of Services Requested From Submission Date 12/09/2017 12/12/2017 12/12/2017
--- NOTE | 2017-12-12 12:00 | CP SOUTH PROGRESS NOTE PSYCH ---
Psych (Inpt) Progress Note Progress Note Mental Status: Ralph was alert, and oriented to time, place, and person. She was calm/not irritable today. She was cooperative, slightly increased psychomotor activity, no abnormal or bizarre behaviors. Ralph was mildly pressured. She reported that her mood is "better". She reported that she frustrated and angry with ex-, thinks he wants to control her life. Ralph thinks he wants her to take care of him because of his physical health problems, denied thinking of suicide, denied thinking of violence or homicide today. She denied hearing voices of family members today, denied that she is paranoid, there were no specific delusions during the interview. Ralph was coherent. no significant difficulties with information processing. Normal memory Assessment: Rlaph Alicea is a 52-year-old White female who was admitted after [place] [employer] got involved and the patient was brought in by ambulance on a police emergency examination request. Since her admission, Ralph showed slow improvement in irritability/anger/ frustration Diagnosis(es): Bipolar I, mixed episode. Treatment Plan Update: 1) Reduce Quetiapine Fumarate to 400 MG AT BEDTIME 2) Start risperidone 1 MG AT BEDTIME Add Clonazepam 0.5 MG Q4 HRS NEEDED PRN anxiety Add a PRN dose of Clonazepam 1 MG AT BEDTIME PRN Continue all other medications unchanged Atorvastatin Calcium 20 MG 1700 12/09 1700 AC 12/11 PO 1641 Benztropine Mesylate 1 MG Q6P PRN 12/09 1645 AC 12/11 PO 1500 Benztropine Mesylate 1 MG Q6P PRN 12/09 1645 AC IM Clonazepam 0.5 MG Q4 HRS NEEDED PRN 12/12 1045 AC Clonazepam 1 MG AT BEDTIME NEED.. 12/12 1045 AC PO 12/19 1044 Clonazepam 1 MG AT BEDTIME 12/09 2100 AC 12/11 PO 12/16 2059 2137 PO 1459 Haloperidol 5 MG Q6P PRN 12/09 1645 AC IM Levothyroxine Sodium 0.15 MG DAILY AC 12/10 0700 AC 12/12 PO 0713 [place] Carbonate 300 MG BID 12/12 09 AC 12/12 [place] Carbonate 150 MG BID 12/12 09 AC 12/12 Lorazepam 2 MG Q6P PRN 12/09 1645 AC IM Magnesium Hydroxide 30 ML AT BEDTIME NEED.. 12/09 1645 AC PO Polyethylene Glycol 17 GM DAILY PRN 12/10 1215 AC PO Quetiapine Fumarate 400 MG AT BEDTIME 12/12 2099 AC PO Quetiapine Fumarate 500 MG AT BEDTIME 12/11 2099 DC 12/11 PO 2136 Risperidone 1 MG AT BEDTIME 12/12 2099 AC PO Trazodone HCl 50 MG AT BEDTIME NEED.. 12/09 1645 DC 12/10 PO 0022
[2017-12-12 19:33] VITALS: BP 132/79
[2017-12-13 07:36] VITALS: BP 126/80
--- NOTE | 2017-12-13 08:59 | CP SOUTH PROGRESS NOTE PSYCH ---
Psych (Inpt) Progress Note Progress Note The pt.'s progress, inpatient treatment plan, and aftercare plans were discussed in the morning treatment planning meeting (team members: Darby Salazar, MAHENDRA, RN, OTR/L, and Psychiatrist) Laboratory Tests 12/13 Sodium (137 - 145 mmol/L) 139 Potassium (3.5 - 5.1 mmol/L) 4.7 Chloride (98 - 107 mmol/L) 106 Carbon Dioxide (22 - 30 mmol/L) 26 Anion Gap (5 - 16) 7 BUN (7 - 17 mg/dL) 17 Creatinine (0.5 - 1.0 mg/dL) 0.7 Estimated GFR (>60 ml/min) > 60 BUN/Creatinine Ratio (7 - 25 %) 24.3 TSH &T3 &Free T4 Intrp (0.270 - 4.20 uIU/mL) 0.395 [place] (0.6 - 1.2 mmol/L) 0.7 Vital Signs Date Time Temp Pulse B/P B/P Pulse O2 12/13 0736 97.5 81 126/80 12/12 1933 97.0 76 132/79 Mental Status: Ralph was alert & oriented to time, place, and person. She was calm and cooperative. Ralph showed slightly increased psychomotor activity, no abnormal or bizarre behaviors. Ralph was mildly pressured. She reported that her mood is "better". Ralph denied thinking of suicide, denied thinking of violence or homicide today. Ralph acknowledged hearing voices of family members yesterday evening and today, denied that she is paranoid, there were no specific delusions during the interview. Ralph was coherent. Assessment: Ralph Alicea is a 52-year-old White Female who was admitted for -- allegedly--exhibiting "erratic" behaviors. Since her admission, Ralph showed slow improvement in irritability/anger/ frustration, she still has audio hallucinations Diagnosis: Bipolar I, mixed episode. Treatment Plan Update: 1) Reduce Quetiapine to 300 MG AT BEDTIME 2) Increase Risperidone to 2MG AT BEDTIME Clonazepam 0.5 MG Q4 HRS NEEDED PRN anxiety Clonazepam 1 MG AT BEDTIME PRN if not asleep after the regular bedtime dose Continue all other medications unchanged Add a PRN dose of Clonazepam 1 MG AT BEDTIME PRN Continue all other medications unchanged
[2017-12-13 09:04] LABS: LITHIUM 0.7 mmol/L (0.6-1.2)
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
[2017-12-13 19:36] VITALS: BP 135/84
[2017-12-14 07:39] VITALS: BP 128/73
--- NOTE | 2017-12-14 11:34 | CP SOUTH PROGRESS NOTE PSYCH ---
Psych (Inpt) Progress Note Progress Note Pt notes that she was observed "talking to my family that is not there." She has discussed this phenomenon with peer who advised her to just ignore them. However , feels that only works to a limited degree as they may say disparaging things to her and she feels she needs to respond. She reports that feels better today as able to have a large bowel movement after being constipated. Denies SI or HI. Current Medications Sig/Krupa Start time Last Medication Dose Route Stop Time Status Admin Acetaminophen 650 MG Q6P PRN 12/09 1645 AC PO Al Hydroxide/Mg 30 ML Q4-6 PRN PRN 12/09 1645 AC Hydroxide PO Atorvastatin Calcium 20 MG 1700 12/09 1700 AC 12/13 PO 1635 Benztropine Mesylate 1 MG Q6P PRN 12/09 1645 AC 12/12 PO 1710 Benztropine Mesylate 1 MG Q6P PRN 12/09 1645 AC IM Clonazepam 0.5 MG Q4 HRS NEEDED PRN 12/12 1045 AC PO 12/19 1044 Clonazepam 1 MG AT BEDTIME NEED.. 12/12 1045 AC PO 12/19 1044 Clonazepam 1 MG AT BEDTIME 12/09 2100 AC 12/13 PO 12/16 2059 2107 Haloperidol 5 MG Q6P PRN 12/09 1645 AC 12/12 PO 1710 Haloperidol 5 MG Q6P PRN 12/09 1645 AC IM Levothyroxine Sodium 0.15 MG DAILY AC 12/10 0700 AC 12/14 PO 0614 [place] Carbonate 300 MG BID 12/12 899 AC 12/14 PO 0843 [place] Carbonate 150 MG BID 12/12 09 AC 12/14 PO 0843 Lorazepam 2 MG Q6P PRN 12/09 1645 AC IM Magnesium Hydroxide 30 ML AT BEDTIME NEED.. 12/09 1645 AC PO Polyethylene Glycol 17 GM DAILY PRN 12/10 1215 AC 12/14 PO 0938 Quetiapine Fumarate 300 MG AT BEDTIME 12/13 2099 AC 12/13 PO 210 Risperidone 2 MG AT BEDTIME 12/13 2099 AC 12/13 PO 2106 Laboratory Tests 12/13 606 Chemistry Sodium (137 - 145 mmol/L) 139 Potassium (3.5 - 5.1 mmol/L) 4.7 Chloride (98 - 107 mmol/L) 106 Carbon Dioxide (22 - 30 mmol/L) 26 Anion Gap (5 - 16) 7 BUN (7 - 17 mg/dL) 17 Creatinine (0.5 - 1.0 mg/dL) 0.7 Estimated GFR (>60 ml/min) > 60 BUN/Creatinine Ratio (7 - 25 %) 24.3 TSH &T3 &Free T4 Intrp (0.270 - 4.20 uIU/mL) 0.395 Toxicology [place] (0.6 - 1.2 mmol/L) 0.7 Vital Signs Date Time Temp Pulse Resp B/P B/P Pulse O2 O2 Flow FiO2 Mean Ox Delivery Rate 12/14 0739 97.6 80 128/73 12/13 1936 96.3 78 135/84 MSE Appearance: as stated age Speech : nl rate, rhythm, volume and prosody Behavior: cooperative Motor: + psychomotor retardation Mood : good Affect : slightly labile, non-labile, slightly irritable, appropriate, constricted Thought process: linear and goal directed Thought content : no delusions or paranoia Perceptions:+ AHs of family speaking to her, denied SI or HI Insight: poor Judgment: poor A/P: Pt with hx of bipolar with psychotic features now with improved mood though continued psychosis. Though pt seems engaged by these hallucinations, she feels at baseline. - Continue current medication regimen
[2017-12-14 19:40] VITALS: BP 138/91
[2017-12-15 07:40] VITALS: BP 138/83
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
[2017-12-15 19:58] VITALS: BP 143/77
[2017-12-16 07:57] VITALS: BP 126/74
--- NOTE | 2017-12-16 08:28 | CP SOUTH PROGRESS NOTE PSYCH ---
Psych (Inpt) Progress Note Progress Note I reviewed Dr. Camarena's notes for the weekend of December 14 and 2017. The pt.'s progress, inpatient treatment plan, and aftercare plans were discussed in the morning treatment planning meeting (team members: Darby Salazar LCSW; Kailyn Garcia, RN; OTR/L, and Psychiatrist) Vital Signs: Date Time Temp Pulse B/P 12/16 0757 97.0 79 126/74 12/15 1958 96.9 78 143/77 Mental Status: Ralph was alert & oriented to time, place, and person. She was calm and cooperative. She remains angry with her daughters and ex- and paranoid about them. Ralph showed slightly increased psychomotor activity, no abnormal or bizarre behaviors. Ralph was mildly pressured. She reported that her mood is "better". Ralph denied thinking of suicide, denied thinking of violence or homicide today. Ralph reported that the "voices" subsided over the weekend. she was paranoid about her daughter stealing her bank cards andmoney and called her daughter and left a message that if she finds out that she stole her money or bank cards m, she (Ralph) will call the police and "have all of you arrested" Ralph is coherent despite delusions and AH. Assessment Update: Ralph Alicea is a 52-year-old White Female who was admitted for-- allegedly--exhibiting "erratic" behaviors. Since her admission on 12/09/2017, Ralph has shown some improvement in level of agitation/anger. However, she continues to have audio hallucinations and paranoid delusions Diagnosis: Bipolar I, mixed episode. Treatment Plan Update: 1) Increase Risperidone to 3 mg at BEDTIME 2) Increase Clonazepam to 1.5 mg at bedtime Continue all other medications unchanged
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
--- NOTE | 2017-12-16 16:29 | SOCIAL WORKER PROG NOTE PSYCH ---
Social Work Progress Note Progress Note The services requested require additional review. You will be contacted regarding the status of this request if further information is needed. An authorization decision will be made within the required timeframes and details of that decision may be found under the member's authorization history. Member Name Member ID Member Subscriber Name Subscriber ID BEENA ROMERO [id number] BEENA ROMERO [id number] Pended Authorization # Client Authorization # Type of Request [id number] CONCURRENT Date of Admission/ Start of Services Requested From Submission Date 12/09/2017 12/16/2017 12/16/2017 Level of Service Type of Service Level of Care Type of Care INPATIENT/HLOC [facility] - Inpatient Hospital Reason Code P76 Provider Name & Address Provider ID Provider Alternate ID NPI # for Authorization TREMAINE WILSON [id number] N/A [address] [facility] [id number]
[2017-12-16 19:25] VITALS: BP 143/79
[2017-12-17 07:50] VITALS: BP 113/63
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
--- NOTE | 2017-12-17 11:13 | SOCIAL WORKER PROG NOTE PSYCH ---
Social Work Progress Note Progress Note Appointments set up with [facility]: [facility] her PCP Paulina Dillon for 12/19/17 at 3:05pm Mary Courtney APRN 01/29/18 at 11:30am Sherry Graham LPC on 12/20/17 12:30pm (after she attends this appt, they will try to make her appt with the BUN MACHINE OPERATOR before January)
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
[2017-12-17 19:30] VITALS: BP 129/77
--- NOTE | 2017-12-18 07:29 | CP SOUTH PROGRESS NOTE PSYCH ---
Psych (Inpt) Progress Note Progress Note The patient's progress, inpatient treatment plan, and aftercare plans were discussed in the treatment planning team meeting (team members: Darby Salazar LCSW; Kailyn Garcia RN; OTR/L, and Psychiatrist) Vital Signs: Blood Pressure: 127/77mmHg; Pulse Rate: 70 bpm; Temperature: 96.3F Mental Status: The pt. reported that the "voices" have subsided significantly and that she is able to ignore them/tune them out (they are not as loud, less intrusive and less frequent). The pt. was talkative with some pressure, not as loud. She was alert & oriented to time, place, and person. She is less paranoid (except when it comes to ex- ), talked about getting a restraining order against him. The pt. showed increased psychomotor activity, reported that her mood is "okay"/ not depressed. Ralph denied wishing or thinking of suicide, she denied thinking of violence or homicide today. She was coherent despite delusions and AH. Assessment Update: The pt. is a 52-year-old White female who was admitted because of erratic behavior. Since her admission on 12/09/2017, Ralph has shown some improvement in level of agitation and anger. Although she continues to have audio hallucinations and paranoid delusions, both symptoms seem to be improving Diagnosis (last update 12/17/2017): Bipolar I, mixed episode. Possible Schizoaffective Disorder, Bipolar Type Treatment Plan Update: Continue all medications unchanged Treatment Plan Update: 1) Increase Risperidone to 1 mg QAM and 3 mg PO QHS Continue all other medications unchanged
[2017-12-18 07:41] VITALS: BP 127/77
[2017-12-18 08:10] LABS: ABSOLUTE BASOPHIL COUNT 0.1 /CUMM (0.0-0.2); ABSOLUTE EOSINOPHIL COUNT 0.2 /CUMM (0.0-0.7); ABSOLUTE GRANULOCYTE CT 4.7 /CUMM (1.4-6.5); ABSOLUTE LYMPH COUNT 3.7 /CUMM (1.2-3.4); ABSOLUTE MONOCYTE COUNT 0.5 /CUMM (0.10-0.60); BASOPHIL % 0.6 % (0.0-2.0); EOSINOPHIL % 2.1 % (0-5); HEMATOCRIT 40.9 % (37-47); MEAN CORPUSCULAR HGB 30.1 PG (27.0-31.0); MEAN CORPUSCULAR HGB CONC 33.5 G/DL (33.0-37.0); MEAN CORPUSCULAR VOLUME 89.8 FL (81.0-99.0); MEAN PLATELET VOLUME 9.1 FL (7.4-10.4); PLATELET COUNT 315 /CUMM (130-400); RBC DISTRIBUTION WIDTH 13.6 % (11.5-14.5); RED BLOOD CELL CT 4.56 /CUMM (4.20-5.40)
[2017-12-18 08:31] LABS: LITHIUM 0.8 mmol/L (0.6-1.2)
[2017-12-18 09:21] LABS: WHITE BLOOD CELL COUNT 9.2 /CUMM (4.8-10.8)
--- NOTE | 2017-12-18 10:09 | SOCIAL WORKER PROG NOTE PSYCH ---
Social Work Progress Note Progress Note Phoned [facility], [place] - #[phone] - rescheduled therapist appointment with SHERRI Walls at 12/24/17 at 1:30pm Prescriber appointment is on Mary Courtney APRN on 12/25/17 at 4:30pm
--- NOTE | 2017-12-18 11:11 | CP SOUTH PROGRESS NOTE PSYCH ---
Psych (Inpt) Progress Note Progress Note Laboratory Tests 12/18 06 Urines Urine Color (YEL,AMB,STR) YEL Urine Clarity (CLEAR) CLEAR Urine pH (5.0 - 8.0) 6.0 Ur Specific [place] (1.001 - 1.035) 1.015 Urine Protein (NEG,<30 MG/DL) NEG Urine Ketones (NEG) NEG Urine Nitrite (NEG) NEG Urine Bilirubin (NEG) NEG Urine Urobilinogen (0.1 - 1.0 EU/dl) 0.2 Ur Leukocyte Esterase (NEG) NEG Ur Microscopic EXAM NOT REQUIRED Urine Hemoglobin (NEG) NEG Urine Glucose (N MG/DL) NEG 12/18 0614 Chemistry Sodium (137 - 145 mmol/L) 139 Potassium (3.5 - 5.1 mmol/L) 4.0 Chloride (98 - 107 mmol/L) 106 Carbon Dioxide (22 - 30 mmol/L) 23 Anion Gap (5 - 16) 11 BUN (7 - 17 mg/dL) 13 Creatinine (0.5 - 1.0 mg/dL) 0.7 Estimated GFR (>60 ml/min) > 60 BUN/Creatinine Ratio (7 - 25 %) 18.6 TSH &T3 &Free T4 Intrp (0.270 - 4.20 uIU/mL) 0.431 Hematology CBC w Diff NO MAN DIFF REQ WBC (4.8 - 10.8 /CUMM) 9.2 RBC (4.20 - 5.40 /CUMM) 4.56 Hgb (12.0 - 16.0 G/DL) 13.7 Hct (37 - 47 %) 40.9 MCV (81.0 - 99.0 FL) 89.8 MCH (27.0 - 31.0 PG) 30.1 MCHC (33.0 - 37.0 G/DL) 33.5 RDW (11.5 - 14.5 %) 13.6 Plt Count (130 - 400 /CUMM) 315 MPV (7.4 - 10.4 FL) 9.1 Gran % (42.2 - 75.2 %) 51.0 Lymphocytes % (20.5 - 51.1 %) 40.5 Monocytes % (1.7 - 9.3 %) 5.8 Eosinophils % (0 - 5 %) 2.1 Basophils % (0.0 - 2.0 %) 0.6 Absolute Granulocytes (1.4 - 6.5 /CUMM) 4.7 Absolute Lymphocytes (1.2 - 3.4 /CUMM) 3.7 H Absolute Monocytes (0.10 - 0.60 /CUMM) 0.5 Absolute Eosinophils (0.0 - 0.7 /CUMM) 0.2 Absolute Basophils (0.0 - 0.2 /CUMM) 0.1 Toxicology [place] (0.6 - 1.2 mmol/L) 0.8
--- NOTE | 2017-12-18 11:39 | SOCIAL WORKER PROG NOTE PSYCH ---
Social Work Progress Note Progress Note Ralph was in her room at 11:30am. She was sitting at her desk looking at magazines. She avoided turning around and presented with an irritable mood. She voiced her frustration about being in the hospital and having nothing better to do, because the doctor and I are keeping her here. I asked if her daughter brought her her things? She said she did, but it was nothing she needed and the stuff she brought was useless. She went on to rant about how we are keeping her here forever, because the doctor and I don't understand her and feel the need to control something we don't understand. I told her we have a discharge date set for Saturday. She stated "good I'll see you Saturday then."
[2017-12-18 19:34] VITALS: BP 140/78
[2017-12-19 07:38] VITALS: BP 133/67
--- NOTE | 2017-12-19 09:50 | CP SOUTH PROGRESS NOTE PSYCH ---
Psych (Inpt) Progress Note Progress Note The patient's progress, inpatient treatment plan, and aftercare plans were discussed in the treatment planning team meeting (team members: Darby Salazar LCSW; Kailyn Garcia RN; OTR/L, and Psychiatrist) Vital Signs: Date Time Temp Pulse B/P B/P O2 FiO2 12/19 0738 96.2 81 133/67 12/18 1934 97.6 90 140/78 Darby Salazar LCSW and I met with the patient at length Mental Status: The pt. was longe winded/talkative but mostly coherent (with occasional tangents or over-detailed/circumstantial speech and mild pressure) Generally re-directable, honest about symptoms, she reported that although she still hears "voices", she is able to to ignore them/tune them out (because she reported that they have subsided significantly, they are not as loud, less intrusive, and less frequent). The pt. was alert & oriented. She is less paranoid (relative improvement, still has paranoid ideas about ex- and older daughter, Chelle), she denied thinking of violence or homicide towards ex-, Kb or anyone else She reported that her mood is "okay"/ not depressed. Ralph denied wishing or thinking of suicide Assessment Update: The pt. is a 52-year-old white female who was admitted because of erratic behavior. Since her admission on 12/09/2017, Ralph has shown some improvement in level of agitation and anger. Although she continues to have audio hallucinations and paranoid delusions, both symptoms have improved to the point of being able to be addressed in an outpatient setting. There were no violent thoughts or thoughts of homicide towards or anyone else Diagnosis (last update 12/17/2017): Bipolar I, mixed episode. Probable Schizoaffective Disorder, Bipolar Type Treatment Plan Update: D/C Home to F/U with [facility]
[2017-12-19] MEDS ORDERED: CLONAZEPAM0.5 M2 PO ×2 (11:12→12:13)
[2017-12-19] MEDS ORDERED: RISPERDAL1 M1 PO (11:12)
[2017-12-19] MEDS ORDERED: QUETIAPINE FUM100 M1 PO (11:12)
[2017-12-19] MEDS ORDERED: LITHIUM CARBON300 M4 PO (11:12)
[2017-12-19] MEDS ORDERED: RISPERIDONE3 M1 PO (11:12)
[2017-12-19] MEDS ORDERED: LITHIUM CARBON150 M1 PO (11:12)
--- NOTE | 2017-12-19 11:49 | Patient Discharge Instructions ---
Psych Discharge Inst General Discharge Information Reason for Admission: erratic behavior Psy Discharge Primary Diag+ Bipolar I Summary Tests/Major Procedures Lab Cholesterol 137 MG/DL 09/29/17 0655 Cholesterol/HDL Ratio 3 % 09/29/17 0655 HDL Cholesterol 40 mg/dL 09/29/17 0655 Hemoglobin A1c 5.6 % 09/29/17 0655 LDL Cholesterol, Calc 45 mg/dL L 09/29/17 0655 Triglycerides 262 mg/dL H 09/29/17 0655 Studies Pending at DC: none Patient Instructions Contact Information Your Psychiatrist on [facility] was Ed CHANCE,Дмитрий * If you are experiencing an emergency related to this hospitalization, please call [phone] to contact the treating psychiatrist or the psychiatrist-on- call. * To Request a copy of your medical records, please contact the Medical Records Department at [phone]. * To request results of studies pending at the time of discharge, please call [phone]. * Continue your Medications until directed to stop by your Healthcare provider. General Medication Information Please continue to take your new medications and your continued home medications , unless otherwise indicated on your discharge medication list, or unless directed by your MD or POWER PLANT OPERATOR to stop them. Special Instructions Diet Regular Activity Normal - Tobacco Use Treatment Offered Post DC Medications Offered: Refused Tob Medication Tx Post DC Tobacco Treatment Plan: Refused Tobacco Tx Pgm - EtOH/Drug Use D/O Treatment Offered Post DC Medications Offered: NA-No EtOH/Drug Use D/O Post DC EtOH/SubAbuse TX Plan: NA-No EtOH/Drug Use D/O Metabolic Screening Not Applicable, patient not on a neuroleptic. Advance Directives Does the Patient have Medical Advance Directives No/Refused further info Does Pt have Psychiatric Advance Directives? No/Refused further info Does Patient have a Designated Surrogate Decision Maker: No Information About Psychiatric Advance Directives Provided? Refused Discharge Plan Post Hospital Treatment Plan: [facility]
--- NOTE | 2017-12-19 12:42 | DISCHARGE SUMMARY REPORT-PSYCH ---
Visit Information Visit Dates/Diagnosis' Admission Date: 12/09/17 Discharge Date: 12/19/17 Reason for Admission: erratic behavior Psy Discharge Primary Diag: Bipolar I Psy Discharge Secondary Diag: ? Schizoaffective Disorder, Bipolar type Hospital Course Significant Lab Findings: Lab Cholesterol 137 MG/DL 09/29/17 0655 Cholesterol/HDL Ratio 3 % 09/29/17 0655 HDL Cholesterol 40 mg/dL 09/29/17 0655 Hemoglobin A1c 5.6 % 09/29/17 0655 LDL Cholesterol, Calc 45 mg/dL L 09/29/17 0655 Triglycerides 262 mg/dL H 09/29/17 0655 Course Complications: There were no complications while the patient was on the inpatient psychiatric unit. Consultations: Patient had a history and physical examination by the medication technician. Please refer to the patient's electronic health record for the details of the H&P. Allergies: Coded Allergies: No Known Allergies (09/28/17) Hospital Course/[place] Response: 12/19/2017: Mental Status: The pt. was longe winded/talkative but mostly coherent (with occasional tangents or over-detailed/circumstantial speech and mild pressure) Generally re-directable, honest about symptoms, she reported that although she still hears "voices", she is able to to ignore them/tune them out (because she reported that they have subsided significantly, they are not as loud, less intrusive, and less frequent). The pt. was alert & oriented. She is less paranoid (relative improvement, still has paranoid ideas about ex- and older daughter, Chelle), she denied thinking of violence or homicide towards ex-, Kb or anyone else She reported that her mood is "okay"/ not depressed. Ralph denied wishing or thinking of suicide Assessment Update: The pt. is a 52-year-old white female who was admitted because of erratic behavior. Since her admission on 12/09/2017, Ralph has shown some improvement in level of agitation and anger. Although she continues to have audio hallucinations and paranoid delusions, both symptoms have improved to the point of being able to be addressed in an outpatient setting. There were no violent thoughts or thoughts of homicide towards or anyone else Diagnosis (last update 12/17/2017): Bipolar I, mixed episode. Probable Schizoaffective Disorder, Bipolar Type Treatment Plan Update: D/C Home to F/U with [facility] HBIPS - Tobacco Use Treatment Offered - EtOH/Drug Use D/O Treatment Offered Metabolic Screening - Screen if on a Neuroleptic Medication - Metabolic screening should include: - Blood Pressure, BMI, Glucose or Hgb A1c, & a - Lipid profile from within the past 365 days. Metabolic Screening Patient on a neuroleptic(s) . Enter below results for Hemoglobin A1C, and lipid panel if obtained during the last 365 days. BMI: 35.500 Blood Pressure: 133/67 Laboratory Results From [facility] (If applicable): Lab Cholesterol 137 MG/DL 09/29/17 0655 Cholesterol/HDL Ratio 3 % 09/29/17 0655 HDL Cholesterol 40 mg/dL 09/29/17 0655 Hemoglobin A1c 5.6 % 09/29/17 0655 LDL Cholesterol, Calc 45 mg/dL L 09/29/17 0655 Triglycerides 262 mg/dL H 09/29/17 0655 Discharge Instructions General Discharge Information Discharge Diet Regular Discharge Activity Normal Referrals Ordered Referrals Provider Referral 12/24/17 For Groups: [[facility]] Appt. with therapist [place] 12/24/17 1:30pm [address] [facility] [place], [place] [address] Provider Referral 12/25/17 For Groups: [[facility]] [facility] appt[facility] with Malissa Courtney APRN 12/25/17 4:30pm [address] [place] [address] Provider Referral 12/19/17 For Groups: [[facility]] [facility] for daily medication administration Patient will resume services on 12/19/17 pm Prescriptions Stop taking the following medications: Quetiapine Fumarate (Seroquel) 300 MG TABLET ORAL AT BEDTIME Qty = 28 [place] Carbonate ([place] Carbonate) 300 MG CAPSULE ORAL TWICE DAILY Qty = 56 Continue taking these medications: Atorvastatin Calcium (Atorvastatin Calcium) 20 MG TABLET 1 Tablet ORAL DAILY Qty = 30 Comments: Last Taken: 12/18/17 Time: 1642 Levothyroxine Sodium (Levothyroxine Sodium) 150 MCG TABLET 1 Tablet ORAL DAILY BEFORE BREAKFAST Comments: Last Taken: 12/19/17 Time: 0645 Start taking the following new medications: Quetiapine Fumarate (Quetiapine Fumarate) 100 MG TABLET 300 Milligram ORAL AT BEDTIME Qty = 15 No Refills Comments: Last Taken: 12/18/17 Time: 2144 Risperidone (Risperidone) 3 MG TABLET 3 Milligram ORAL AT BEDTIME Qty = 15 No Refills Comments: Last Taken: 12/18/17 Time: 2144 Risperidone (Risperdal) 1 MG TABLET 1 Milligram ORAL 0900 Qty = 15 No Refills Comments: Last Taken: 12/19/17 Time: 857 [place] Carbonate ([place] Carbonate) 300 MG CAPSULE 300 Milligram ORAL TWICE DAILY Qty = 30 No Refills Comments: Last Taken: 12/19/17 Time: 857 [place] Carbonate ([place] Carbonate) 150 MG CAPSULE 150 Milligram ORAL TWICE DAILY Qty = 30 No Refills Comments: Last Taken: 12/19/17 Time: 857 The following medications have been changed: Old: Clonazepam (Clonazepam) 0.5 MG TABLET 1 Tablet ORAL Every night Qty = 15 New: Clonazepam (Clonazepam) 0.5 MG TABLET 2 Tablet ORAL Every night Qty = 30 Comments: LAST RECEIVED KLONOPIN 1.5MG ON 12/18/17 @ [address] Stacy'S CURRENT ONGOING SCRIPT REGIMENT. Studies Pending at Discharge none New: Clonazepam (Clonazepam) 0.5 MG TABLET 2 Tablet ORAL Every night Qty = 30 Comments: LAST RECEIVED KLONOPIN 1.5MG ON 12/18/17 @ [address] Stacy'S CURRENT ONGOING SCRIPT REGIMENT. Studies Pending at Discharge none
--- NOTE | 2017-12-19 14:19 | SOCIAL WORKER PROG NOTE PSYCH ---
Social Work Progress Note Progress Note Dr. Ward and I met with Ralph together this morning. She was much more pleasant today. She said she needed to let go of the anger realizing that it wasn't good for her. She was angry yesterday about not being discharged. The goal of our conversation this morning was to assess her thoughts and feelings about her daughters today and her ex Justus. She said she doesn't trust Greg, but feels more trustful with her daughter Mony now that she realizes she wasn't stealing money from her. She talked about her relationship with her ex and stated she continues to believe he wants her back living with him. She seems to want her ex- in her life and believes he is a friend. She denied thoughts to harm him and stated that she would never kill him as it is against her judaism and he's the Father of her girls. She stated she realizes that she hears voices and despite that she has the ability to control her behavior and what she does. She denies any threatening voices at this time. The doctor and I decided to discharge Ralph today vs. tomorrow as there doesn 't seem to be an added benefit of her staying 1 additional day. Reviewed her appts. scheduled with her at [facility]. She was discharged early afternoon. Called Gume her nurse from [facility] to resume services. Gume stated he or another nurse would see her this afternoon. Informed him that she is on Risperdal now.
--- NOTE | 2017-12-19 14:23 | SOCIAL WORKER PROG NOTE PSYCH ---
Social Work Progress Note Faxed Referral(s) 1 Referred To: [facility] Transition of Care Documents sent: Health Summary, W10 Faxed to: [facility] Fax #: [phone] Faxed by: Darby Salazar Date faxed: 12/19/17 Time Faxed: 1400 Faxed Referral(s) 2 Referred To: [facility] Transition of Care Documents sent: Health Summary, W10 Faxed to: [facility] Fax #: [phone] Faxed by: Darby Salazar Date faxed: 12/19/17 Time Faxed: [phone]
== END 2017-12-19 12:33 | DRG 885 ==
LOC: ERH 12:48 → ERHI 16:32 → CP SOUTH 16:32
PROVIDERS: Physician Assistant; Psychiatry & Neurology Psychiatry
DX: F31.9 Bipolar disorder, unspecified (principal)
CPT/HCPCS: 36415; 80307; 81001; 81003; 81025; 93005; 93010; G0480; J0515; J1630

== ENCOUNTER 2017-12-22 01:17 | Inpatient (IN) | payer OTHER, MEDICARE ==
[~2017-12-22] VITALS: Ht 154.9 cm; Wt 90.3 kg
[~2017-12-22 01:17] MED LIST changes: +CLONAZEPAM0.5 M2 PO; +LITHIUM CARBON150 M1 PO; +QUETIAPINE FUM100 M1 PO; +RISPERDAL1 M1 PO; +RISPERIDONE3 M1 PO
--- NOTE | 2017-12-22 01:50 | ED PSYCHIATRIC COMPLAINT ---
See Addendum History of Present Illness General Chief Complaint: Psychiatric Related Complaint Stated Complaint: PSYCH EVAL Source: patient Exam Limitations: no limitations Vital Signs & Intake/Output Vital Signs & Intake/Output Vital Signs Date Time Temp Pulse Resp B/P B/P Pulse O2 O2 Flow FiO2 Mean Ox Delivery Rate 12/22 1241 98.1 80 16 120/83 97 Room Air 12/22 1051 98.3 97 19 120/84 96 Room Air Room Air 12/22 0632 97.5 75 18 127/75 98 Room Air 12/22 0137 97.1 88 18 108/68 94 Room Air 12/22 0130 100 Room Air Allergies Coded Allergies: No Known Allergies (09/28/17) Reconcile Medications Atorvastatin Calcium 20 MG TABLET 1 TAB PO DAILY CHOLESTEROL (Reported) Clonazepam 0.5 MG TABLET 2 TAB PO QPM SLEEP Levothyroxine Sodium 150 MCG TABLET 1 TAB PO DAILY AC THYROID (Reported) [place] Carbonate 300 MG CAPSULE 300 MG PO BID Bipolar [place] Carbonate 150 MG CAPSULE 150 MG PO BID Bipolar Quetiapine Fumarate 100 MG TABLET 300 MG PO AT BEDTIME Bipolar Risperidone 3 MG TABLET 3 MG PO AT BEDTIME Bipolar Risperidone (Risperdal) 1 MG TABLET 1 MG PO 0900 bipolar Triage Note: TRIAGE: BIBA FROM HOME REQUESTING PSYCH EVAL, HX PSYCHOSIS AND ADMITTED TO [facility] X2 SINCE SEPTEMBER, JUST D/LEVAR FROM [facility] ON SATURDAY. PATIENT TAKES RISPERIDONE, CLONODIN AND SEROQUEL. PER PATIENT'S DAUGHTER TO EMS, "I DON'T WANT HER ADMITTED TO [facility], SHE HAS BEEN THERE X2 NOW WITHOUT ANY HELP." PER PATIENT, DAUGHTER (CRISS) IS NOT HER POA. DAUGHTER STATES PATIENT WAS "ACTING DISORIENTED AND PSYCHOTIC AGAIN." Triage Nurses Notes Reviewed? yes Onset: Abrupt Duration: unknown duration Timing: unknown HPI: 12/22/17 52-year-old female with a past medical history of bipolar disorder and schizoaffective disorder, He presents to the emergency department by ambulance requesting help, she said the police showed up at her house. She reports a long story of the past 48 hours trying to assist others and not using drugs, she has flight of ideas and is disorganized. She told me she was brought in by EMS and police., (Damian Ahumada DO) Past History Travel History Traveled to [place] past 21 day No Medical History Any Pertinent Medical History? 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 No (Damian Ahumada DO) Review of Systems Review of Systems Constitutional: Denies: fever. EENTM: Denies: visual changes. Respiratory: Denies: short of breath. Cardiovascular: Denies: chest pain. GI: Denies: abdominal pain. Genitourinary: Reports: no symptoms. Musculoskeletal: Reports: no symptoms. Skin: Reports: no symptoms. Neurological/Psychological: Reports: depressed. Hematologic/Endocrine: Reports: no symptoms. Immunologic/Allergic: Reports: no symptoms. (Damian Ahumada DO) Physical Exam Physical Exam General Appearance: alert, awake, anxious, moderate distress Head: atraumatic, normal appearance Eyes: Bilateral: normal appearance, PERRL, EOMI. Ears, Nose, Throat: normal pharynx, normal ENT inspection Neck: normal inspection, supple, full range of motion Respiratory: normal breath sounds, chest non-tender, no respiratory distress Cardiovascular: regular rate/rhythm Gastrointestinal: soft, non-tender Extremities: normal range of motion Neurological/Psychiatric: no motor/sensory deficits, awake, agitated, alert, normal mood/affect Appearance/Memory/Insight: disheveled Behavoir/Eye Contact/Speech: cooperative, increased rate of speech Thoughts/Hallucinations: flight of ideas, obsessive Skin: intact, normal color, warm/dry SAD PERSONS SAD PERSONS Response Value Age <19 or >45 years? yes 1 Previous Attempts/Psych Care yes 1 Rational Thinking Loss? yes 2 Single//? yes 1 Social Support? has no support 1 Total 6 SAD PERSONS Done? yes, patient not suicidal (Damian Ahumada DO) Progress Differential Diagnosis: drug intoxication, drug overdose, drug withdrawal, bipolar disorder Plan of Care: Orders Procedure Date/time Status Heart Healthy Diet 12/22 B Active URINE DRUGS OF ABUSE 12/22 1539 Complete Lab Add-on Test 12/22 0840 Active LITHIUM 12/22 0235 Complete Continuous Observation Monitor 12/22 015 Active ETHANOL 12/22 015 Complete COMPREHENSIVE METABOLIC PANEL 12/22 015 Complete CBC WITHOUT DIFFERENTIAL 12/22 015 Complete ED CRISIS PSYCH CONSULT 12/22 149 Active URINE DRUG SCREEN FOR ER ONLY 12/22 136 Complete URINALYSIS 12/22 136 Complete Current Medications Sig/Krupa Start time Last Medication Dose Stop Time Status Admin Clonazepam 1 MG QPM 12/22 2099 UNVr (KlonoPIN) 12/29 2058 Quetiapine Fumarate 300 MG AT BEDTIME 12/22 2099 UNVr (Seroquel) Risperidone 3 MG AT BEDTIME 12/22 2099 UNVr (risperiDONE) Atorvastatin Calcium 20 MG DAILY 12/22 899 UNVr 12/22 (Lipitor) 0953 [place] Carbonate 300 MG BID 12/22 899 UNVr 12/22 ([place] Carbonate) 0953 [place] Carbon[place] 150 MG BID 12/22 899 UNVr 12/22 ([place] Carbonate) 0953 Risperidone 1 MG 0900 12/22 09 UNVr 12/22 (Risperidone) 0953 Levothyroxine Sodium 0.15 MG DAILY AC 12/22 08 UNVr 12/22 (Synthroid) 0953 Laboratory Tests 12/22/17 1544: Urine Opiates Screen < 100, Methadone Screen 41, Barbiturate Screen < 60, Ur Phencyclidine Scrn < 6.00, Amphetamines Screen < 100, U Benzodiazepines Scrn < 85, Urine Cocaine Screen < 50, Urine Cannabis Screen < 5.00 12/22/17 0235: Anion Gap 9, Estimated GFR > 60, BUN/Creatinine Ratio 20.0, Glucose 107 H, Calcium 9.9, Total Bilirubin 0.6, AST 24, ALT 37, Alkaline Phosphatase 62, Total Protein 6.7, Albumin 4.3, Globulin 2.4, Albumin/Globulin Ratio 1.8, CBC w Diff NO MAN DIFF REQ, RBC 4.38, MCV 89.8, MCH 29.8, MCHC 33.2, RDW 13.7, MPV 8.8, Gran % 54.4, Lymphocytes % 37.0, Monocytes % 6.3, Eosinophils % 2.0, Basophils % 0.3, Absolute Granulocytes 6.4, Absolute Lymphocytes 4.3 H, Absolute Monocytes 0.7 H, Absolute Eosinophils 0.2, Absolute Basophils 0, [place] 0.6, Serum Alcohol < 10.0 12/22/17 0139: Urine Opiates Screen < 100, Methadone Screen 45, Barbiturate Screen < 60, Ur Phencyclidine Scrn < 6.00, Amphetamines Screen < 100, U Benzodiazepines Scrn 90, Urine Cocaine Screen < 50, Urine Cannabis Screen < 5.00, Urine Color STRAW, Urine Clarity CLEAR, Urine pH 6.0, Ur Specific [place] <= 1.005, Urine Protein NEG, Urine Ketones NEG, Urine Nitrite NEG, Urine Bilirubin NEG, Urine Urobilinogen 0.2, Ur Leukocyte Esterase TRACE H, Ur Microscopic SEDIMENT EXAMINED, Urine WBC 1-3 H, Ur Epithelial Cells RARE, Urine Bacteria RARE H, Urine Hemoglobin NEG, Urine Glucose NEG Initial ED EKG: none (Damian Ahumada DO) Hand-Off Endorsed To: Damian Ahumada DO Endorsed Time: 1899 Pending: consult (RE-EVAL) (Mandy CHANCE,Joni Lewis) Departure Departure Disposition: STILL A PATIENT Condition: Stable Clinical Impression Primary Impression: Bipolar disorder Referrals: Paulina Dillon APRN (PCP/Family) Departure Forms: Customer Survey General Discharge Information Comments Patient was signed out to Dr. Galvan pending crisis evaluation. (Damian Ahumada DO)
[2017-12-22 03:05] LABS: ABSOLUTE BASOPHIL COUNT 0 /CUMM (0.0-0.2); ABSOLUTE EOSINOPHIL COUNT 0.2 /CUMM (0.0-0.7); ABSOLUTE GRANULOCYTE CT 6.4 /CUMM (1.4-6.5); ABSOLUTE LYMPH COUNT 4.3 /CUMM (1.2-3.4); ABSOLUTE MONOCYTE COUNT 0.7 /CUMM (0.10-0.60); BASOPHIL % 0.3 % (0.0-2.0); GRANULOCYTE % 54.4 % (42.2-75.2); HEMATOCRIT 39.3 % (37-47); MEAN CORPUSCULAR HGB 29.8 PG (27.0-31.0); MEAN CORPUSCULAR HGB CONC 33.2 G/DL (33.0-37.0); MEAN CORPUSCULAR VOLUME 89.8 FL (81.0-99.0); MEAN PLATELET VOLUME 8.8 FL (7.4-10.4); PLATELET COUNT 316 /CUMM (130-400); RBC DISTRIBUTION WIDTH 13.7 % (11.5-14.5); RED BLOOD CELL CT 4.38 /CUMM (4.20-5.40); WHITE BLOOD CELL COUNT 11.7 /CUMM (4.8-10.8)
[2017-12-22 09:51] LABS: LITHIUM 0.6 mmol/L (0.6-1.2)
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
[2017-12-23 18:34] VITALS: BP 127/77
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
[2017-12-23 20:04] VITALS: BP 141/79
[2017-12-24 08:11] VITALS: BP 106/68
--- NOTE | 2017-12-24 11:48 | CPS PROVIDER INIT ASMT PSYCH ---
Psychiatric Admission County Surveyor's Note Reviewed: Yes Patient Seen and Examined: Yes Identifying Information: 52 year old female CIERA. Chief Complaint: "I have anxiety, I have Bipolar I can't sit here for 10 hours" Reaction to Hospitalization: Voluntry admission History of Present Illness Onset of Illness: several years ago. This episode is a continuation of the previous episode that resulted in an inpatient psychiatric admission to [facility] Circumstances Leading to Admission: the pt's Visiting Nurse "Primo" who told Chelle that the pt did not let him in the house and in fact refused to take her medications from him. Also, the nurse Primo reported that the pt saw him at the front door of her home and did not open the door and was yelling "rape" at the nurse. Problem(s) Justifying Need for Admission: Pt was recently discharged from [facility] on 12/19/17 after spending 10 days on CPS from 12/09 to 12/19/17. Pt was admitted due to Auditory Hallucination hearing family member voices that were not present. Pt was diagnosed with Bipolar Disorder I and prescribed the medications Seroquel, Aitkin and Risperadal. According to the pt she has taken her medication herself and she admitted that she did not let the nurse in her house because she does not trust him. Pt utox was negative and her Aitkin level was in therapeutic range. Pt was alert and oriented. She is very agitated and irritable. She is fixated on complaining about her and daughter saying "they do not make decisions for me". Pt denies hearing voice, and she denies suicidal and homicidal thoughts. Currently, she is pacing the hallway of the ED, anxious and adamant that she wants to leave and go home. Other HPI: Pt reports she has had a diagnosis of mental illness specifically "Manic Depressive Disorder" at age 20 after she gave to her first daughter. It was ruled out that she was having Post and instead she was treated with Electric Shock Therapy; which worked really well for her. Pt reports I been in and out of the hospital for 30 years "I'm tired and want to be left alone". Pt states she is admitted to the inpatient hospital for psychiatric reasons at least once every year. "I have Bipolar Disorder". Pt then said I worked with Dr. Stacy in [facility] and "I am taking my medications and I want to go home". Pt reports she has appointments on Saturday and 12/24 & 12/26/17 at [facility] with Mary Courtney and Miranda Barriga APRN. Phone contact with pt's daughter Greg who requested the the pt be moved from [facility] to [facility] ED. Greg who is an RN was told that we cannot move the pt from one hospital to another hospital ED. Greg made it very clear that she Greg does not want the pt to be admitted to [facility] again. She felth she was discharged "too early". Consultation with Dr. Hanson who recommends hold over and observe the pt. It is possible she could be decompensating if she is refusing medications from the visiting nurse. Past Psychiatric History Past Diagnosis(es)- if any: F31.1 Bipolar Disorder I, F41.1 Anxiety Disorder Hypothyrodism Past Precipitating Factors- if any: Probably non-adherence medications in the past. - Include inpatient and outpatient treatment Treatment History: Patient was inpatient at [facility] just recently and was discharged last week, in early December 2017 The patient was also inpatient at [facility] back in September 2017 Pt seen at [facility] by therapist and RUBEN for MM, did not tell them about cutting back on meds History of Suicide Attempts or Gestures The patient denies past suicide attempts but the record refers to multiple suicide attempts but no further details were given. Substance Abuse History: Denied abusing substances. She reported in her previous admission that she was drinking 2 glasses of wine 3 times a week Allergies: Coded Allergies: No Known Allergies (09/28/17) Home Med List: Atorvastatin Calcium 20 MG TABLET 1 TAB PO DAILY CHOLESTEROL #30 (Reported) Entered as Reported by Gonzalo Barber on 11/15/15 1007 Clonazepam 0.5 MG TABLET 2 TAB PO QPM SLEEP #30 TAB Prescribed by Дмитрий Ward MD on 12/19/17 Levothyroxine Sodium 150 MCG TABLET 1 TAB PO DAILY AC THYROID (Reported) Entered as Reported by Elodia Renae on 09/28/17 1639 Aitkin Carbonate 300 MG CAPSULE 300 MG PO BID Bipolar #30 TAB Prescribed by Дмитрий Ward MD on 12/19/17 Aitkin Carbonate 150 MG CAPSULE 150 MG PO BID Bipolar #30 CAP Prescribed by Дмитрий Ward MD on 12/19/17 Quetiapine Fumarate 100 MG TABLET 300 MG PO AT BEDTIME Bipolar #15 TAB Prescribed by Дмитрий Ward MD on 12/19/17 Risperidone 3 MG TABLET 3 MG PO AT BEDTIME Bipolar #15 TAB Prescribed by Дмитрий Ward MD on 12/19/17 Risperidone (Risperdal) 1 MG TABLET 1 MG PO 0900 - Include any medical condition(s) that may - impact the patient's recovery/remission Past Medical History: Hypothyroidism Past History Medical History Neurological: NONE EENT: NONE Cardiovascular: hyperlipidemia Respiratory: NONE Gastrointestinal: constipation Hepatic: NONE Renal: NONE Musculoskeletal: NONE Psychiatric: anxiety, bipolar disease, depression, insomnia, schizo affective disorder Endocrine: hypothyroidism Blood Disorders: NONE Cancer(s): NONE CORONARY CARE UNIT NURSE/Reproductive: fibroid History of MRSA: No History of VRE: No History of CDIFF: No Isolation History: Standard Surgical History Surgical History: HYSTERECTOMY Psychiatric Family/Social Hx Family History Psychiatric Illness: maternal uncle and a cousin have/had bipolar disorder Substance Use: Denied substance abuse problems in the family Suicides: A maternal uncle committed suicide Social History Living Situation: Patient lives alone in her own apartment (renting) Significant Relationships (family/friends): HER-2 daughters Education: She finished 10th grade she then she obtained a GED afterwards Vocation/Occupation: Currently unemployed, 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 - #1 Recognizing dangerous situations. - #2 Coping Skills. - #3 Basic information about quitting. Status of Tobacco Cessation Counseling: Not Applicable Cessation Med Status Not Applicable Alcohol Screening - ETOH screen POS if BAL >=80 or Audit-C>= M4/F3 Audit-C Score from Diag Assess: 1 Blood Alcohol Level: Laboratory Tests 12/22 0235 Toxicology Serum Alcohol (<10 MG/DL) < 10.0 Alcohol Use Screening Results: Neg per Audit C &/or BAL - If ETOH counseling indicated - the following topics are required. - #1 Express concern about the patient's - drinking at unhealthy levels, include informing - of national norms for moderate drinking: - men <= 14 drinks/week, max 4 drinks/occasion - women <= 7 drinks/week, max 3 drinks/occasion - #2 Providing feedback, including linking alcohol to - negative physical effects (liver injury, hypertension) - negative emotional effects (relationship problems and - depression) - negative occupational consequences (reduced work - performance) - #3 Advising the patient to abstain from alcohol or - to drink below national norms for moderate drinking - (as listed above). Status of ETOH Use Counseling: N/A B/C NO ETOH Use Metabolic Screening - Screen if on a Neuroleptic Medication - Metabolic screening should include: - Blood Pressure, BMI, Glucose or Hgb A1c, & a - Lipid profile from within the past 365 days. Metabolic Screening Patient on a neuroleptic(s) . Enter below results for Hemoglobin A1C, and lipid panel if obtained during the last 365 days. BMI: 37.700 Blood Pressure: 138/80 Laboratory Results From [facility] (If applicable): Lab Cholesterol 137 MG/DL 09/29/17 0655 Cholesterol/HDL Ratio 3 % 09/29/17 0655 HDL Cholesterol 40 mg/dL 09/29/17 0655 Hemoglobin A1c 5.6 % 09/29/17 0655 LDL Cholesterol, Calc 45 mg/dL L 09/29/17 0655 Triglycerides 262 mg/dL H 09/29/17 0655 Exam and Plan Mental Status Examination Ambulation Status: Patient was steady on her feet Appearance: Overweight Attitude towards examiner: Calm and cooperative Psychomotor activity: Normal psychomotor activity Behavior: No abnormal behaviors Quality of speech: Talkative with mild pressure Affect: Good range of affect Mood: Denied feeling depressed Suicidal Ideation: Denied thinking of suicide Homicidal Ideation: Denied thinking of violence or homicide Hallucinations: Acknowledges on and off hallucinations of family members Paranoid/Delusional Material: Acknowledged some paranoia, there were some paranoid delusions, she confessed that she was suspicious that what I was an FBI agent Difficulties with thought organization: For the most part she is coherent was some tangents and some over detail the speech Insight: Impaired insight Judgment: Impaired judgment Orientation: Alert and oriented to time, place, and person. Cognition: Did not seem to have difficulties with information processing Memory Function: Did not seem to have difficulties with short-term memory Estimate of intellectual functioning: Average Assets/Strengths Patient Identified Assets/Strengths: The patient is intelligence, resourceful, and has supports /supportive family Impression/Plan Impression and Plan: 52-year-old white female with history of most likely schizoaffective disorder bipolar type (although historically she was given only a diagnosis of bipolar disorder) presents back to the inpatient psychiatric unit shortly after her previous discharge because of what seems to be a paranoia and auditory hallucinations. - Include all active medical diagnosis that require tx DSM 5 Diagnosis(es): Schizoaffective disorder, bipolar type - Initial Tx Plan for Active Psych & Medical Conditions Treatment Plan: Inpatient psychiatric care with safety checks every 15 minutes and Resume psychotropic medications as per her discharge last week Biopsychosocial assessment, collateral information, and aftercare planning Nursing assessments, vital signs, and patient education Group therapy and milieu therapy and activities therapy Patient will be evaluated daily by a psychiatrist to reevaluate her mental status and monitor medications - Factors that would help patient function - in a less restrictive setting. Factors: The patient would be discharge once his psychotic symptoms are under reasonable control.
--- NOTE | 2017-12-24 13:17 | SOCIAL WORKER PROG NOTE PSYCH ---
Social Work Progress Note Progress Note Ralph shared that she is back because she doesn't think the Risperdal has been effective at helping with the voices. She reports she is still hearing voices. She thought she was doing well at home, but relayed that her daughters and ex were concerned and thought she needed more time to adjust to the medication. She reports that she has been in communication with her daughters and her ex . She is willing this time around to involve them in a family meeting. I told her that I had heard that she fired her visiting nurse. She said that was true. I asked why? She said that the nurse was causing her to feel paranoid and uncomfortable. She got the sense that he wanted her to return to the hospital. She does not want to work with the same nurse again, but was open to having another one. She seemed okay with the idea of having to stay here for a little while. She signed releases for [facility] and [facility]. She was aware that she had appts. with her therapist today and her REFINER OPERATOR tomorrow. I called her therapist [place] [phone] to let her know she is inpatient and won't be attending her appts. Called [facility] and spoke with [place] in intake. Ralph is still open as a patient with them. She will inquire if it is possible for her to see another nurse. Spoke with Chelle Rosas's daughter. She said she is not able to come in for a family meeting on due to work. She would like to come tomorrow. She understands it's early but she would like to speak with the doctor. I planned a meeting for 1pm and told her I would see if the doctor is available at that time.
--- NOTE | 2017-12-24 14:24 | PN- Att Addend ---
Attending Addendum Attending Brief Note Patient seen and examined, overall feels okay but claims that she had some burning sensation in her back yesterday. Today it is better. She also complains of constipation. Patient is admitted to [facility] with bipolar disorder. She was recently admitted with the same issue and got discharged less than a week ago. Vital Signs Date Time Temp Pulse Resp B/P B/P Pulse O2 O2 Flow FiO2 Mean Ox Delivery Rate 12/24 810 96.9 77 106/68 12/24 2003 97.3 74 141/79 12/23 1834 97.5 85 127/77 12/23 1732 97.0 89 18 147/81 96 Room Air 12/23 1448 97.7 89 20 144/94 94 Room Air on exam; aox3, nad. cv; s1,s2, rrr resp; clear abd; soft, nt, bs+ ext; no edema Laboratory Tests 12/22 1544 Toxicology Urine Opiates Screen (>2000 NG/ML) < 100 Methadone Screen (>300 NG/ML) 41 Barbiturate Screen (>200 NG/ML) < 60 Ur Phencyclidine Scrn (>25 NG/ML) < 6.00 Amphetamines Screen (>1000 NG/ML) < 100 U Benzodiazepines Scrn (>200 NG/ML) < 85 Urine Cocaine Screen (>300 NG/ML) < 50 Urine Cannabis Screen (>50 NG/ML) < 5.00 Laboratory Tests 12/22 12/22 1544 0235 Chemistry Sodium (137 - 145 mmol/L) 138 Potassium (3.5 - 5.1 mmol/L) 3.7 Chloride (98 - 107 mmol/L) 105 Carbon Dioxide (22 - 30 mmol/L) 25 Anion Gap (5 - 16) 9 BUN (7 - 17 mg/dL) 14 Creatinine (0.5 - 1.0 mg/dL) 0.7 Estimated GFR (>60 ml/min) > 60 BUN/Creatinine Ratio (7 - 25 %) 20.0 Glucose (65 - 99 mg/dL) 107 H Calcium (8.4 - 10.2 mg/dL) 9.9 Total Bilirubin (0.2 - 1.3 mg/dL) 0.6 AST (14 - 36 U/L) 24 ALT (9 - 52 U/L) 37 Alkaline Phosphatase (<127 U/L) 62 Total Protein (6.3 - 8.2 g/dL) 6.7 Albumin (3.5 - 5.0 g/dL) 4.3 Globulin (1.9 - 4.2 gm/dL) 2.4 Albumin/Globulin Ratio (1.1 - 2.2 %) 1.8 Hematology CBC w Diff NO MAN DIFF REQ WBC (4.8 - 10.8 /CUMM) 11.7 H RBC (4.20 - 5.40 /CUMM) 4.38 Hgb (12.0 - 16.0 G/DL) 13.0 Hct (37 - 47 %) 39.3 MCV (81.0 - 99.0 FL) 89.8 MCH (27.0 - 31.0 PG) 29.8 MCHC (33.0 - 37.0 G/DL) 33.2 RDW (11.5 - 14.5 %) 13.7 Plt Count (130 - 400 /CUMM) 316 MPV (7.4 - 10.4 FL) 8.8 Gran % (42.2 - 75.2 %) 54.4 Lymphocytes % (20.5 - 51.1 %) 37.0 Monocytes % (1.7 - 9.3 %) 6.3 Eosinophils % (0 - 5 %) 2.0 Basophils % (0.0 - 2.0 %) 0.3 Absolute Granulocytes (1.4 - 6.5 /CUMM) 6.4 Absolute Lymphocytes (1.2 - 3.4 /CUMM) 4.3 H Absolute Monocytes (0.10 - 0.60 /CUMM) 0.7 H Absolute Eosinophils (0.0 - 0.7 /CUMM) 0.2 Absolute Basophils (0.0 - 0.2 /CUMM) 0 Toxicology Urine Opiates Screen (>2000 NG/ML) < 100 Methadone Screen (>300 NG/ML) 41 Barbiturate Screen (>200 NG/ML) < 60 Ur Phencyclidine Scrn (>25 NG/ML) < 6.00 Amphetamines Screen (>1000 NG/ML) < 100 U Benzodiazepines Scrn (>200 NG/ML) < 85 [place] (0.6 - 1.2 mmol/L) 0.6 Urine Cocaine Screen (>300 NG/ML) < 50 Urine Cannabis Screen (>50 NG/ML) < 5.00 Serum Alcohol (<10 MG/DL) < 10.0 08/12 0139 Toxicology Urine Opiates Screen (>2000 NG/ML) < 100 Methadone Screen (>300 NG/ML) 45 Barbiturate Screen (>200 NG/ML) < 60 Ur Phencyclidine Scrn (>25 NG/ML) < 6.00 Amphetamines Screen (>1000 NG/ML) < 100 U Benzodiazepines Scrn (>200 NG/ML) 90 Urine Cocaine Screen (>300 NG/ML) < 50 Urine Cannabis Screen (>50 NG/ML) < 5.00 Urines Urine Color (YEL,AMB,STR) STRAW Urine Clarity (CLEAR) CLEAR Urine pH (5.0 - 8.0) 6.0 Ur Specific [place] (1.001 - 1.035) <= 1.005 Urine Protein (NEG,<30 MG/DL) NEG Urine Ketones (NEG) NEG Urine Nitrite (NEG) NEG Urine Bilirubin (NEG) NEG Urine Urobilinogen (0.1 - 1.0 EU/dl) 0.2 Ur Leukocyte Esterase (NEG) TRACE H Ur Microscopic SEDIMENT EXAMINED Urine WBC (0 - 2 /HPF) 1-3 H Ur Epithelial Cells (NONE,FEW) RARE Urine Bacteria (NEG/NONE) RARE H Urine Hemoglobin (NEG) NEG Urine Glucose (N MG/DL) NEG A/P: 52 y/o F with pmh/past psych hx sig for anxiety, bipolar disease, depression, insomnia, schizo affective disorder, hypothyroidism admitted to [facility] with bipolar disorder. I reviewed patient's blood work. She had a recent thyroid function testing done that was normal. Please continue levothyroxine. I have ordered MiraLAX for constipation. Further psych management will be up to the psychiatrist.
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
[2017-12-24 20:07] VITALS: BP 136/80
[2017-12-25 07:45] VITALS: BP 158/80
--- NOTE | 2017-12-25 11:15 | CP SOUTH PROGRESS NOTE PSYCH ---
Psych (Inpt) Progress Note Progress Note Vital Signs Date Time Temp Pulse B/P B/P O2 FiO2 12/25 744 97.3 83 158/80 12/24 2006 97.6 80 136/80 Mental Status Examination Patient was steady on her feet, calm and cooperative. Normal psychomotor activity, no abnormal behaviors Talkative with mild pressure Good range of affect Denied feeling depressed. Denied thinking of suicide. Denied thinking of violence or homicide. Ralph reported on-and-off hallucinations of family members. Acknowledged some paranoia, there were some paranoid delusions, she was -for the most part she is coherent was some tangents and some over detail the speech. Impaired insight. Impaired judgment. Alert and oriented to time, place, and person. Did not seem to have difficulties with information processing. She did not seem to have difficulties with short-term memory Assessment: 52-year-old white female with history of most likely schizoaffective disorder bipolar type (although historically she was given only a diagnosis of bipolar disorder) presents back to the inpatient psychiatric unit shortly after her previous discharge because of what seems to be a paranoia and auditory hallucinations. Diagnosis(es): Schizoaffective disorder, bipolar type Treatment Plan: Continue inpatient psychiatric care with safety checks Q 15 minutes Continue aftercare planning, Nursing assessments, vital signs, and patient education Continue Group therapy and milieu therapy and activities therapy Reduce quetiapine to 150 mg at bedtime Continue Risperidone 1 mg QAM and 4 mg QHS
--- NOTE | 2017-12-25 14:21 | SOCIAL WORKER PROG NOTE PSYCH ---
Social Work Progress Note Progress Note Ralph's daughter Beryl came in for a family meeting this afternoon. Dr. Ward was also in attendance at this meeting. Chelle expressed frustration around her Mother's discharge last admission. She didn't feel that her Mom should have been discharged still hearing voices. We explained that she may continue to hear voices and that is not a criteria to keep someone in the hospital. She said her Mother was upset with her exhusjessenia' s roommate and looking to hurt him the day after discharge. Ralph denied wanting to hurt anyone and basically stated she may say things, but it doesn't mean she is going to act on it. She doesn't feel the need to hurt anyone. Both daughters wanted to ensure that she would not be discharged prematurely. I asked what would be a sign that she was back to baseline? Chelle said she didn't want her Mom to be hearing voices. The doctor explained that that was not a reasonable request, explaining that our job was to assess safety and we will discharge her as long as she can be safe. Daughters are advocating that Ralph switch her care to [facility], due to their frustrations with [facility]. Ralph agreed to do this. She signed a release for [facility] at the meeting. We discussed the VNS and if Ralph would consider working with [facility]'s nurse that she had or not. I explained that I called [facility] and they do not currently have a female nurse serving that area and her current nurse is the only one. Ralph would prefer a female. She will think about it. I told her we may need to switch providers then. Daughters would like to be informed of which provider she has and wants their phone number at discharge. I explained that [facility] may not have a prescriber appt. for several weeks. She does not want her Mother to return to [facility] and she would prefer a bridge at [place]. Both daughters feel that Ralph is doing much better than she was. They were told that she would most likely be here about a week longer. Ralph stated that the voices are muffled and not conversations at this point. She asked for her daughters to talk to her about things vs. hearing things second hand and reacting. Daughters would like another meeting prior to discharge. Called [facility] and left a message for Christina. She returned the call and left a message stating she will put her down for an intake on 01/06.
[2017-12-25 19:58] VITALS: BP 145/78
[2017-12-26 08:08] VITALS: BP 131/78
--- NOTE | 2017-12-26 08:22 | SOCIAL WORKER PROG NOTE PSYCH ---
Social Work Progress Note Progress Note Faxed a clinical packet to Christina at [facility] and left a voicemail. Talked to Christina and she is scheduled for her intake with Janiya Castillo on 01/06 at 12:15pm. [facility] is not booking prescriber appts. until February. They will put her on the list to be moved up. Called OPS and scheduled a bridge appt. for 01/29 5: 15pm with Elin Funes APRN.
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
--- NOTE | 2017-12-26 13:15 | SOCIAL WORKER PROG NOTE PSYCH ---
Social Work Progress Note Progress Note BEENA NICK [id number] 1965 BEENA NICK [id number] Pended Authorization # Client Authorization # Type of Request [id number] CONCURRENT Date of Admission/ Start of Services Requested From Submission Date 12/23/2017 12/26/2017 12/26/2017
--- NOTE | 2017-12-26 14:16 | SOCIAL WORKER PROG NOTE PSYCH ---
Social Work Progress Note Progress Note Pt was in bed and woke when I entered her room. Pt states her daughters wedding is next month and she would like to lose some belly fat, she states she feels sluggish "since adding the risperidone, usually I am a ball of energy, but now I feel slower". Pt states accupuncture was helpful today and she never did it before. Pt asked if she msised group, and decided to get up and see "what its about".
[2017-12-26 20:15] VITALS: BP 135/80
[2017-12-27 07:55] VITALS: BP 114/86
--- NOTE | 2017-12-27 15:03 | CP SOUTH PROGRESS NOTE PSYCH ---
Psych (Inpt) Progress Note Progress Note The pt.'s progress, inpatient treatment plan, and aftercare plans were discussed in the treatment planning meeting (team members: MAHENDRA, RN; OTR/L, and Psychiatrist) Mental Status Examination Ralph started by saying that she has not had any hallucinations in the past 24 hours. She was alert & oriented to time, place, and person. She was calm and cooperative. She showed normal psychomotor activity, no abnormal behaviors, Ralph showed bright affect, denied feeling depressed, and denied thinking of suicide. She denied thinking of violence or homicide (towards ex- or anyone else ). Ralph did not bring up her ex- today (it appears that her paranoia may be ebbing), there were no specific delusions. Ralph was coherent despite some tangents, talkativeness, and mild pressure. She did not seem to have difficulties with information processing or short-term memory Assessment Update: Ralph Alicea (: 1965) is a 52-year-old white female who was admitted because of paranoia and auditory hallucinations. She seems to be showing moderate improvement Diagnoses: Schizoaffective disorder, bipolar type Hypothyroidism Treatment Plan: 1) add nicotine gum 2 mg every 2 hours as needed for cigarette cravings 2) Reduce Seroquel to 100 mg at bedtime 3) continue Risperidone 2 mg AM and 4 mg QHS Continue Klonopin 2 mg at bedtime Continue all other medications unchanged
--- NOTE | 2017-12-27 17:57 | SOCIAL WORKER PROG NOTE PSYCH ---
Social Work Progress Note Progress Note Met with Ralph - she was pacing the unit. She stated 'I have more energy today - so I'm walking." She has been attending groups. Denies SI/HI, no AH/VH. She rates anxiety 2/10(worst), depression 0/10, chayo 5/10. She denies feeling hopeless, helpless. Stated "I do for myself." She discussed her plan for discharge to go home and follow-up with [facility] and [facility]. She refuses groups/IOP. She was speaking loud today. She is concerned about a 40lb weight gain since her [facility] PCP decreased her Levothyroxine - 2-3 months ago. She does not want to go back to [facility]. She is future oriented. Continued stay recommended to monitor mood and chayo, reponse to medications. Daughters want another meeting - SW to talk to Dr. Stacy about when to arrange for next week - Dr. Stanley wants to do meeting by phone with daughters. Per Darby Hendrix notes - SW next week to set-up [facility] VNS with a FEMALE nurse. VNS needs to be in place for day of discharge. PT. has appointments set- up for OPS, need [facility] Intake set-up - call Marge. [facility] Review completed. Check [facility] Web on Saturday for next review date (later in AM).
[2017-12-27 20:01] VITALS: BP 147/93
[2017-12-28 07:42] VITALS: BP 147/80
--- NOTE | 2017-12-28 13:40 | CP SOUTH PROGRESS NOTE PSYCH ---
Psych (Inpt) Progress Note Progress Note Include the following elements, when applicable: Involvement in the active treatment of the patient with behavioral observations of the patient and the patient's response to the treatment. Review of the ongoing treatment process in the context of the treatment plan. Indication of how multi-disciplinary staff members are carrying out the treatment plan. Plans for future interventions and recommendations for revision of the treatment plan. Liaison with other physicians/providers. Progress Note: Doing well, has had some issues falling asleep but was able to use mindfulness techniques last night she stated she learned from the nurses. She has been eating well, her mood is good. Wants to leave on Saturday rather than later in the week; I explained that she can speak with her team about her progress on Saturday. She appeared coherent, logical overall. MSE: well groomed middle aged woman, overweight, calm and cooperative. Eager to leave session, wants to return to play cards, overall no major mental status issues. She was bright, reactive affect, her mood was good. Her speech was normal. Thinking was logical and coherent and did not have evidence of delusional thinking. She had no thoughts to harm herself or anyone else. There were no psychomotor changes. no hallucinations and not internally preoccupied. Insight and judgment appear fair. A: 52 year old woman with diagnosis of schizoaffective disorder, appeared to be more paranoid earlier in admission with hallucinations, now stabilizing overall. Plan: continue current plan of care.
[2017-12-28 19:43] VITALS: BP 110/70
[2017-12-29 07:56] VITALS: BP 135/84
--- NOTE | 2017-12-29 12:21 | CP SOUTH PROGRESS NOTE PSYCH ---
Psych (Inpt) Progress Note Progress Note Include the following elements, when applicable: Involvement in the active treatment of the patient with behavioral observations of the patient and the patient's response to the treatment. Review of the ongoing treatment process in the context of the treatment plan. Indication of how multi-disciplinary staff members are carrying out the treatment plan. Plans for future interventions and recommendations for revision of the treatment plan. Liaison with other physicians/providers. Progress Note: Stated that she slept well, wants to go home, feels she is gaining weight here and is antsy to leave. Encouraged her to discuss with team tmr. She had no other concerns. She has been writing her resume and socializing well. MSE: well groomed middle aged woman, overweight, calm and cooperative. She is pleasant and engaged, and appropriately related. Her speech is regular rate and rhythm. Her mood is neutral and her affect is full, bright and reactive. She does not appear to be hallucinating and no evidence of delusional thinking during our interaction. She had no thoughts to harm herself or anyone else. There were no psychomotor changes. no hallucinations and not internally preoccupied. Insight and judgment appear fair. A: 52 year old woman with diagnosis of schizoaffective disorder, appeared to be more paranoid earlier in admission with hallucinations, now stabilizing overall, with bright affect and future oriented plans. Plan: continue current plan of care.
[2017-12-29 19:59] VITALS: BP 157/93
[2017-12-30 08:26] VITALS: BP 124/84
--- NOTE | 2017-12-30 11:45 | CP SOUTH PROGRESS NOTE PSYCH ---
Psych (Inpt) Progress Note Progress Note I reviewed Dr. Flor's notes for the weekend of 12/28 and 12/29 The pt.'s progress, inpatient treatment plan, and aftercare plans were discussed in the treatment planning meeting (team members: MAHENDRA, RN; Activities Therapist, and Psychiatrist) Mental Status Examination Ralph denied hallucinations since Saturday ( night) She was alert & oriented to time, place, and person. She was calm and cooperative. She showed normal psychomotor activity, no abnormal behaviors. Ralph showed bright affect, denied feeling depressed, and denied thinking of suicide. She denied thinking of violence or homicide (towards ex- or anyone else ). Ralph did not bring up her ex- today (it appears that her paranoia may be ebbing), there were no specific delusions. Ralph was coherent despite some tangents, less talkativeness, mild pressure. She did not seem to have difficulties with information processing or short-term memory Assessment Update: Ralph Alicea (: 1965) is a 52-year-old white female who was admitted to the inpatient unit at [facility] because of paranoia and auditory hallucinations. Since her admission on 12/23/2017, she seems to be showing moderate improvement Diagnoses: Schizoaffective disorder, bipolar type Hypothyroidism Treatment Plan: 1) Continue nicotine gum 2 mg every 2 hours as needed for cigarette cravings 2) Continue Seroquel 100 mg at bedtime 3) continue Risperidone 2 mg AM and 4 mg QHS Continue Klonopin 2 mg at bedtime Continue all other medications unchanged
--- NOTE | 2017-12-30 15:12 | SOCIAL WORKER PROG NOTE PSYCH ---
Social Work Progress Note Progress Note Nancy was able to meet with Ralph, she was pleasant, bright and cooperative. She denies SI, HI, VH and AH. NANCY informed Ralph about leaving voicemail for both her daughter to set up a family meeting over the phone. Ralph informed NANCY that her daughter Julius might be sleeping due to her work schedule. She reports feeling very anxious due to her discharge date being moved to . She reports not being able to sit still or lay down. She reports praying to god to help her get through the next couple days until she is discharged. She was grateful to be able to talk to NANCY, it helped her calm down. She expressed her daughter were not happy with the treatment from [facility] and will be going to [facility], she reports going to them in the past and not going back but is willing to give them a second chance. NANCY called [facility] and informed them that pt will not be returning due to unsatisfied treatment. Pt reports her weekend was good and attended groups. She reports being sad because she was not able to say bye to one of her friends that was discharged because she was in group. She is happy to be discharging soon so she can ride her bike, read, tend her garden, cook and get ready for her daughters wedding in February. Pt reports needing to know what time she will be discharged so she can inform her daughter what time to come get her. Pt lives alone, she states that her SS covers her rent and some utilities but there are other needs that she won't be able to afford. Pt reports calling her to see if he will come and visit, so she can tell him that she wants to be friends with him. [facility] was informed about discontinuing care. Appointment with Janiya Marie 01/06/18 @ 12:15pm and [facility] appointment 01/29/18 @ 5: 15pm with Elin Funes APRN. Still waiting for call back from Ralph's daughters to confirm phone meeting. Pt still needs [facility] to be contacted to resume daily meds - request Female nurse.
[2017-12-30 19:22] VITALS: BP 162/98
[2017-12-31 08:18] VITALS: BP 145/81
--- NOTE | 2017-12-31 12:20 | SOCIAL WORKER PROG NOTE PSYCH ---
Social Work Progress Note Progress Note Patient seen individually today. Patient's mood is good. Patient stated that she was feeling anxious, and was going to see the medication nurse to get the prn that Dr. Stanley had pescribed for, and she does not know the name. Patient was happy to talk, and is looking forward to family meeting which will be partly done on phone. Patient states that she knows that that has to happen prior to getting discharged, which she hopes can occur on . Patient was reviewing with me the things she wants to get back doing, including taking care of bills and other responsibilities. Patient denied any suicidal thoughts, and went on to say that she does get the manic symptoms, but does not get the depessive ones. Patient reiterated that, for her, it will feel nice getting to go outside once again, and she hopes she continues to progress.
--- NOTE | 2017-12-31 14:25 | CP SOUTH PROGRESS NOTE PSYCH ---
Psych (Inpt) Progress Note Progress Note The pt.'s progress, inpatient treatment plan, and aftercare plans were discussed in the treatment planning meeting (team members: MAHENDRA, RN; Activities Therapist, and Psychiatrist) Vital Signs Date Time Temp Pulse B/P B/P Pulse O2 FiO2 12/31 817 97.2 100 145/81 12/30 1921 98.3 95 162/98 Mental Status Examination Ralph denied hallucinations, she was coherent despite some tangents, and she was not talkative today, not pressured. She denied thinking of violence or homicide (towards ex- or anyone else). She was alert & oriented to time, place, and person. She was calm and cooperative. She showed normal psychomotor activity, no abnormal behaviors. Ralph showed bright affect, denied feeling depressed, and denied thinking of suicide. There were no specific delusions. Assessment Update: she seems to be showing moderate improvement, tolerating medications well today, Yesterday I reduced her Risperdal and added as needed doses of Ativan because she was experiencing akathisia with Risperdal at a total dose of 6 mg per day. Her current dose of Risperdal is 4 mg per day as 1 mg in the morning and 3 mg at bedtime Diagnoses: Schizoaffective disorder, bipolar type Hypothyroidism Treatment Plan: 1) Risperdal was reduced yesterday (after I wrote my initial progress note) to 1 mg in the morning and 3 mg at bedtime Continue all other medications unchanged
--- NOTE | 2017-12-31 15:40 | SOCIAL WORKER PROG NOTE PSYCH ---
Social Work Progress Note Progress Note BEENA NICK [id number] 1965 BEENA NICK [id number] Pended Authorization # Client Authorization # Type of Request [id number] CONCURRENT Date of Admission/ Start of Services Requested From Submission Date 12/23/2017 12/31/2017 12/31/2017
--- NOTE | 2017-12-31 15:41 | SOCIAL WORKER PROG NOTE PSYCH ---
Social Work Progress Note Progress Note Pt has an intake with [facility] at 1:15 on 01/02/18.
[2017-12-31 19:33] VITALS: BP 131/87
[2018-01-01 07:52] VITALS: BP 132/83
[2018-01-01] MEDS ORDERED: LITHIUM CARBON300 M4 PO (11:43)
[2018-01-01] MEDS ORDERED: KLONOPIN1 M1 PO (11:43)
[2018-01-01] MEDS ORDERED: QUETIAPINE FUM100 M1 PO (11:43)
[2018-01-01] MEDS ORDERED: RISPERIDONE3 M1 PO (11:43)
[2018-01-01] MEDS ORDERED: LITHIUM CARBON150 M1 PO (11:43)
[2018-01-01] MEDS ORDERED: ATORVASTATIN CA20 M1 PO (11:43)
[2018-01-01] MEDS ORDERED: NICORELIEF2 MG PO (11:43)
[2018-01-01] MEDS ORDERED: LEVOTHYROXINE150 MCG PO (11:43)
[2018-01-01] MEDS ORDERED: RISPERDAL1 M1 PO (11:43)
--- NOTE | 2018-01-01 11:46 | Patient Discharge Instructions ---
Psych Discharge Inst General Discharge Information Reason for Admission: hallucinations and paranoia Psy Discharge Primary Diag+ Schizoaffective Disorder Summary Tests/Major Procedures Lab Cholesterol 137 MG/DL 09/29/17 0655 Cholesterol/HDL Ratio 3 % 09/29/17 0655 HDL Cholesterol 40 mg/dL 09/29/17 0655 Hemoglobin A1c 5.6 % 09/29/17 0655 LDL Cholesterol, Calc 45 mg/dL L 09/29/17 0655 Triglycerides 262 mg/dL H 09/29/17 0655 Studies Pending at DC: none Patient Instructions Contact Information Your Psychiatrist on [facility] was Дмитрий Ward MD * If you are experiencing an emergency related to this hospitalization, please call [phone] to contact the treating psychiatrist or the psychiatrist-on- call. * To Request a copy of your medical records, please contact the Medical Records Department at [phone]. * To request results of studies pending at the time of discharge, please call [phone]. * Continue your Medications until directed to stop by your Healthcare provider. General Medication Information Please continue to take your new medications and your continued home medications , unless otherwise indicated on your discharge medication list, or unless directed by your MD or [facility] [employer] [facility] to stop them. Special Instructions Diet Regular Activity Normal - Tobacco Use Treatment Offered Post DC Medications Offered: Script Given-See Med List Post DC Tobacco Treatment Plan: Refused Tobacco Tx Pgm - EtOH/Drug Use D/O Treatment Offered Post DC Medications Offered: NA-No EtOH/Drug Use D/O Post DC EtOH/SubAbuse TX Plan: NA-No EtOH/Drug Use D/O Metabolic Screening Patient on a neuroleptic(s) . Enter below results for Hemoglobin A1C, and lipid panel if obtained during the last 365 days. BMI: 35.5 Blood Pressure: 132/83 Laboratory Results From [facility] (If applicable): Lab Cholesterol 137 MG/DL 09/29/17 0655 Cholesterol/HDL Ratio 3 % 09/29/17 0655 HDL Cholesterol 40 mg/dL 09/29/17 0655 Hemoglobin A1c 5.6 % 09/29/17 0655 LDL Cholesterol, Calc 45 mg/dL L 09/29/17 0655 Triglycerides 262 mg/dL H 09/29/17 0655 Advance Directives Does the Patient have Medical Advance Directives No/Refused further info Does Pt have Psychiatric Advance Directives? No/Refused further info Does Patient have a Designated Surrogate Decision Maker: No Information About Psychiatric Advance Directives Provided? Refused Discharge Plan Post Hospital Treatment Plan: [facility]
--- NOTE | 2018-01-01 13:18 | CP SOUTH PROGRESS NOTE PSYCH ---
Psych (Inpt) Progress Note Progress Note 01/01/2018: Mental Status: Ralph was alert & oriented to time, place, and person. She was calm and cooperative. She denied hallucinations. She was coherent despite some tangents, and she was not talkative/not pressured. Ralph denied thinking of violence or homicide (towards ex- or anyone else). She She showed normal psychomotor activity, no abnormal behaviors. Ralph showed bright affect, denied feeling depressed, and denied thinking of suicide. There were no specific delusions. Treatment Plan: D/C Home to follow up with care
--- NOTE | 2018-01-01 15:03 | SOCIAL WORKER PROG NOTE PSYCH ---
Social Work Progress Note Progress Note Pt is prepared for discharge she is in a good ppace, reporting no si/hi/ah/vh. She will follow up on 01/06 with [facility]. Faxed Referral(s) Referred To: [facility] Transition of Care Documents sent: KOBY Instructions, Health Summary, W10 Faxed to: [facility] Fax #: [phone] Faxed by: Lorrie Anaya Date faxed: 01/01/18 Time Faxed: [phone]
== END 2018-01-01 15:30 | DRG 885 ==
LOC: ERH 01:17 → CP SOUTH 12-23 15:27 → ERHI 12-23 15:27 → CP SOUTH 12-23 18:02
PROVIDERS: Emergency Medicine
DX: F25.9 Schizoaffective disorder, unspecified (principal); G47.00 Insomnia, unspecified; E03.9 Hypothyroidism, unspecified; K59.00 Constipation, unspecified
CPT/HCPCS: 80307; 81001; G0463; G0480

== ENCOUNTER 2018-01-06 22:42 | Emergency (ER) | payer OTHER, MEDICARE ==
[~2018-01-06] VITALS: Ht 157.5 cm; Wt 90.7 kg
[~2018-01-06 22:42] MED LIST changes: +KLONOPIN1 M1 PO; +NICORELIEF2 MG PO
[2018-01-06 22:46] VITALS: BP 150/97
== END 2018-01-06 23:32 | disposition admitted as inpatient to this hospital (09) ==
LOC: ERH 22:42
DX: R29.898 Other symptoms and signs involving the musculoskeletal system (principal)